=== PATIENT | female | born 1950 | race Caucasian/White ===

== ENCOUNTER → 2016-10-18 | Outpatient (REF) | payer MEDICARE, OTHER ==
[~2016-10-18] MED LIST: AMOX875T2 PO; BENZ200C44 PO
[2016-10-18 12:38] LABS: ALBUMIN 3.6 GM/DL (3.2-5.2); ALKALINE PHOSPHATASE 140 U/L (45-117); ALT/SGPT 24 U/L (12-78); ANION GAP 12 MEQ/L (8-16); AST/SGOT 12 U/L (15-37); BILIRUBIN,TOTAL 0.7 MG/DL (0.2-1.0); BLOOD UREA NITROGEN 13 MG/DL (7-18); CALCIUM LEVEL 8.9 MG/DL (8.8-10.2); CARBON DIOXIDE LEVEL 25 MEQ/L (21-32); CHLORIDE LEVEL 107 MEQ/L (98-107); CREATININE FOR GFR 0.88 MG/DL (0.55-1.02); FREE T4 1.09 NG/DL (0.76-1.46); GLOMERULAR FILTRATION RATE > 60.0 (>45); GLUCOSE, FASTING 98 MG/DL (80-110); POTASSIUM SERUM 4.1 MEQ/L (3.5-5.1); SODIUM LEVEL 144 MEQ/L (136-145); TOTAL PROTEIN 7.2 GM/DL (6.4-8.2)
== END ==
LOC: M SFHCPLAZ 08:59
PROVIDERS: ATTEND Nurse Practitioner Family
DX: E78.5 Hyperlipidemia, unspecified (principal)

== ENCOUNTER → 2017-04-19 | Outpatient (REF) | payer MEDICARE, OTHER ==
[~2017-04-19] MED LIST changes: -BENZ200C44 PO; +BENZ200C53 PO
[2017-04-19 12:21] LABS: ALBUMIN 3.4 GM/DL (3.2-5.2); ALKALINE PHOSPHATASE 110 U/L (45-117); ALT/SGPT 23 U/L (12-78); ANION GAP 7 MEQ/L (8-16); AST/SGOT 10 U/L (15-37); BILIRUBIN,TOTAL 0.6 MG/DL (0.2-1.0); BLOOD UREA NITROGEN 21 MG/DL (7-18); CALCIUM LEVEL 8.8 MG/DL (8.8-10.2); CARBON DIOXIDE LEVEL 27 MEQ/L (21-32); CHLORIDE LEVEL 109 MEQ/L (98-107); CHOLESTEROL LEVEL 170 MG/DL (<200); CREATININE FOR GFR 0.87 MG/DL (0.55-1.02); GLOMERULAR FILTRATION RATE > 60.0 (>45); GLUCOSE, FASTING 96 MG/DL (80-110); POTASSIUM SERUM 4.2 MEQ/L (3.5-5.1); SODIUM LEVEL 143 MEQ/L (136-145); TOTAL PROTEIN 6.5 GM/DL (6.4-8.2); TRIGLYCERIDES LEVEL 112 MG/DL (<150)
== END ==
LOC: M SFHCPLAZ 07:51
PROVIDERS: ATTEND Nurse Practitioner Family
DX: E78.5 Hyperlipidemia, unspecified (principal); E55.9 Vitamin D deficiency, unspecified

== ENCOUNTER → 2017-10-25 | Outpatient (REF) | payer MEDICARE, OTHER ==
[2017-10-25 13:00] LABS: ALBUMIN/GLOBULIN RATIO 1.14 (1.00-1.93); ALKALINE PHOSPHATASE 106 U/L (45-117); ALT/SGPT 48 U/L (12-78); ANION GAP 10 MEQ/L (8-16); AST/SGOT 19 U/L (7-37); BILIRUBIN,TOTAL 0.8 MG/DL (0.2-1.0); BLOOD UREA NITROGEN 19 MG/DL (7-18); CALCIUM LEVEL 9.2 MG/DL (8.8-10.2); CARBON DIOXIDE LEVEL 26 MEQ/L (21-32); CHLORIDE LEVEL 106 MEQ/L (98-107); CREATININE FOR GFR 0.88 MG/DL (0.55-1.02); GLOMERULAR FILTRATION RATE > 60.0 (>45); GLUCOSE, FASTING 98 MG/DL (80-110); POTASSIUM SERUM 4.3 MEQ/L (3.5-5.1); SODIUM LEVEL 142 MEQ/L (136-145); TOTAL PROTEIN 7.5 GM/DL (6.4-8.2)
[2017-10-25 13:03] LABS: TOTAL 25(OH) VITAMIN D 37.9 NG/ML (30.0-100.0)
== END ==
LOC: M SFHCPLAZ 08:38
DX: I10 Essential (primary) hypertension (principal); E55.9 Vitamin D deficiency, unspecified
CPT/HCPCS: 80053

== ENCOUNTER → 2018-04-19 | Outpatient (REF) | payer MEDICARE, OTHER ==
[2018-04-19 10:09] LABS: ALBUMIN 3.3 GM/DL (3.2-5.2); ALBUMIN/GLOBULIN RATIO 0.94 (1.00-1.93); ALKALINE PHOSPHATASE 124 U/L (45-117); ALT/SGPT 22 U/L (12-78); ANION GAP 7 MEQ/L (8-16); AST/SGOT 13 U/L (7-37); BILIRUBIN,TOTAL 0.6 MG/DL (0.2-1.0); BLOOD UREA NITROGEN 13 MG/DL (7-18); CALCIUM LEVEL 8.3 MG/DL (8.8-10.2); CARBON DIOXIDE LEVEL 27 MEQ/L (21-32); CHLORIDE LEVEL 109 MEQ/L (98-107); CHOLESTEROL LEVEL 153 MG/DL (<200); CREATININE FOR GFR 0.82 MG/DL (0.55-1.30); GLOMERULAR FILTRATION RATE > 60.0 (>45); GLUCOSE, FASTING 98 MG/DL (70-100); HDL CHOLESTEROL 51 MG/DL (>40); LDL CHOLESTEROL 82.6 MG/DL (<100); NON-HDL-C 102 MG/DL; POTASSIUM SERUM 3.9 MEQ/L (3.5-5.1); SODIUM LEVEL 143 MEQ/L (136-145); TOTAL PROTEIN 6.8 GM/DL (6.4-8.2); TRIGLYCERIDES LEVEL 97 MG/DL (<150)
[2018-04-19 10:39] LABS: MALB URINE SIEMENS 7.2 MG/L; MAU/CREAT RATIO 3.5 MCG/MG (0.0-30.0)
== END ==
LOC: M SFHCPLAZ 07:50
DX: I10 Essential (primary) hypertension (principal); E78.5 Hyperlipidemia, unspecified
CPT/HCPCS: 80053

== ENCOUNTER → 2018-10-21 | Outpatient (REF) | payer MEDICARE, OTHER ==
[~2018-10-21] MED LIST changes: -BENZ200C53 PO; +BENZ200C70 PO
[2018-10-21 12:04] LABS: ALBUMIN 3.8 GM/DL (3.2-5.2); ALT/SGPT 43 U/L (12-78); BILIRUBIN,TOTAL 0.7 MG/DL (0.2-1.0); BLOOD UREA NITROGEN 12 MG/DL (7-18); CARBON DIOXIDE LEVEL 25 MEQ/L (21-32); CHLORIDE LEVEL 107 MEQ/L (98-107); CREATININE FOR GFR 0.93 MG/DL (0.55-1.30); GLOMERULAR FILTRATION RATE > 60.0 (>45); GLUCOSE, FASTING 99 MG/DL (70-100); POTASSIUM SERUM 4.4 MEQ/L (3.5-5.1); SODIUM LEVEL 140 MEQ/L (136-145); TOTAL PROTEIN 7.1 GM/DL (6.4-8.2)
== END ==
LOC: M SFHCPLAZ 07:48
PROVIDERS: ATTEND Nurse Practitioner Family
DX: I10 Essential (primary) hypertension (principal); E78.5 Hyperlipidemia, unspecified; E55.9 Vitamin D deficiency, unspecified

== ENCOUNTER → 2019-05-26 | Outpatient (REF) | payer MEDICARE, OTHER ==
[2019-05-26 10:29] LABS: CREATININE, URINE 72.7 MG/DL; MALB URINE SIEMENS 8.6 MG/L; MAU/CREAT RATIO 11.8 MCG/MG (0.0-30.0)
[2019-05-26 10:33] LABS: ALBUMIN 3.5 GM/DL (3.2-5.2); ALT/SGPT 20 U/L (12-78); BILIRUBIN,TOTAL 0.6 MG/DL (0.2-1.0); BLOOD UREA NITROGEN 16 MG/DL (7-18); CALCIUM LEVEL 8.8 MG/DL (8.8-10.2); CARBON DIOXIDE LEVEL 28 MEQ/L (21-32); CHLORIDE LEVEL 108 MEQ/L (98-107); CHOLESTEROL LEVEL 172 MG/DL (<200); CHOLESTEROL RISK RATIO 2.177 (<5); CREATININE FOR GFR 0.77 MG/DL (0.55-1.30); GLOMERULAR FILTRATION RATE > 60.0 (>45); GLUCOSE, FASTING 84 MG/DL (70-100); HDL CHOLESTEROL 79 MG/DL (>40); LDL CHOLESTEROL 81 MG/DL (<100); NON-HDL-C 93 MG/DL; POTASSIUM SERUM 4.2 MEQ/L (3.5-5.1); SODIUM LEVEL 143 MEQ/L (136-145); TRIGLYCERIDES LEVEL 60 MG/DL (<150)
== END ==
LOC: M SFHCPLAZ 08:12
PROVIDERS: ATTEND Nurse Practitioner Family
DX: E78.5 Hyperlipidemia, unspecified (principal); I10 Essential (primary) hypertension; Z11.59 Encounter for screening for other viral diseases
CPT/HCPCS: 36415; 80053; 80061; 82043; 84439; 84443; G0472

== ENCOUNTER → 2020-03-28 | Outpatient (CLI) | payer MEDICARE, OTHER ==
[~2020-03-28] MED LIST changes: +ATOR1TAB21 PO; +LOSA25TA14 PO
== END ==
LOC: M LABSMTC 11:02
PROVIDERS: ATTEND Anesthesiology
DX: Z03.818 Encounter for observation for suspected exposure to other biological agents ruled out (principal); Z11.59 Encounter for screening for other viral diseases
CPT/HCPCS: C9803; U0003

== ENCOUNTER 2020-03-31 08:49 | Day surgery (SDC) | payer MEDICARE, BC, OTHER ==
[~2020-03-31] VITALS: Ht 162.6 cm; Wt 87.1 kg
[~2020-03-31 08:49] MED LIST changes: +NS 1,000 ML IV ONE
[2020-03-31] MEDS ORDERED: propofoL 500 MG/50 ML VIAL As Ordered ONE (10:28)
[2020-03-31] MEDS ORDERED: LIDOCAINE 2% 100MG/5ML SDV (FOR ANES.) As Ordered ONE (10:28)
--- NOTE | 2020-03-31 10:57 | ROOR ---
Patient Name: Tanya Casper Procedure Date: 03/31/2020 10:26 AM Date of : 1950 Age: 70 Room: [facility] Gender: Female Note Status: Finalized Procedure: Total Colonoscopy to Cecum + Biopsy Polypectomy Indications: High risk colon cancer surveillance: Personal history of colonic polyps, Last colonoscopy: 2015 Providers: Arsen Skinner MD Referring MD: Alex Gaona MD Requesting Provider: Medicines: Monitored Anesthesia Care Complications: No immediate complications. Procedure: Pre-Anesthesia Assessment: - The heart rate, respiratory rate, oxygen saturations, blood pressure, adequacy of pulmonary ventilation, and response to care were monitored throughout the procedure. The Colonoscope was introduced through the anus and advanced to the cecum, identified by appendiceal orifice and ileocecal valve. The colonoscopy was performed without difficulty. The patient tolerated the procedure well. The quality of the bowel preparation was excellent. Findings: The perianal and digital rectal examinations were normal. Non-bleeding internal hemorrhoids were found during retroflexion. The hemorrhoids were small and Grade I (internal hemorrhoids that do not prolapse). A diminutive polyp was found at 10 cm proximal to the anus. The polyp was sessile. The polyp was removed with a cold biopsy forceps. Resection and retrieval were complete. Multiple small and large-mouthed diverticula were found in the recto-sigmoid colon, sigmoid colon and descending colon. The exam was otherwise without abnormality on direct and retroflexion views. Impression: - Non-bleeding internal hemorrhoids. - One diminutive polyp at 10 cm proximal to the anus, removed with a cold biopsy forceps. Resected and retrieved. - Diverticulosis in the recto-sigmoid colon, in the sigmoid colon and in the descending colon. - The examination was otherwise normal on direct and retroflexion views. - The exam was otherwise normal to the cecum. Recommendation: - Patient has a contact number available for emergencies. The signs and symptoms of potential delayed complications were discussed with the patient. Return to normal activities tomorrow. Written discharge instructions were provided to the patient. - High fiber diet. - Discharge patient to home. - Continue present medications. - Await pathology results. - Telephone GI clinic for pathology results in 1 week. - Repeat colonoscopy in 5 years for surveillance. - Return to referring physician. - The findings and recommendations were discussed with the patient's family. Arsen Skinner MD Arsen Skinner MD 03/31/2020 10:57:15 AM Electronically signed by Arsen Skinner MD Number of Addenda: 0 Note Initiated On: 03/31/2020 10:26 AM Estimated Blood Loss: Estimated blood loss: none.
[2020-03-31 11:15] VITALS: BP 130/91
== END 2020-03-31 11:23 | disposition home or self-care (01) ==
LOC: M OPP 08:49
PROVIDERS: ATTEND Internal Medicine Gastroenterology
DX: Z12.11 Encounter for screening for malignant neoplasm of colon (principal); Z86.010 Personal history of colon polyps; K64.0 First degree hemorrhoids; D12.6 Benign neoplasm of colon, unspecified; K57.30 Diverticulosis of large intestine without perforation or abscess without bleeding; I10 Essential (primary) hypertension; Z79.899 Other long term (current) drug therapy

== ENCOUNTER → 2020-05-20 | Outpatient (REF) | payer MEDICARE, BC, OTHER ==
[~2020-05-20] MED LIST changes: -NS 1,000 ML IV ONE
[2020-07-04 11:42] LABS: ALBUMIN 3.6 GM/DL (3.2-5.2); ALT/SGPT 20 U/L (12-78); BILIRUBIN,TOTAL 0.6 MG/DL (0.2-1.0); BLOOD UREA NITROGEN 13 MG/DL (7-18); CARBON DIOXIDE LEVEL 28 MEQ/L (21-32); CHLORIDE LEVEL 109 MEQ/L (98-107); CHOLESTEROL LEVEL 171 MG/DL (<200); CHOLESTEROL RISK RATIO 2.552 (<5); CREATININE FOR GFR 0.88 MG/DL (0.55-1.30); FREE T4 1.01 NG/DL (0.76-1.46); GLOMERULAR FILTRATION RATE > 60.0 (>45); GLUCOSE, FASTING 101 MG/DL (70-100); HDL CHOLESTEROL 67 MG/DL (>40); HEMOGLOBIN A1c 5.1 %; LDL CHOLESTEROL 89 MG/DL (<100); NON-HDL-C 104 MG/DL; POTASSIUM SERUM 4.4 MEQ/L (3.5-5.1); SODIUM LEVEL 142 MEQ/L (136-145); TOTAL PROTEIN 7.1 GM/DL (6.4-8.2); TRIGLYCERIDES LEVEL 73 MG/DL (<150)
== END ==
LOC: M SFHCPLAZ 14:50
PROVIDERS: ATTEND Physician Assistant
DX: E78.2 Mixed hyperlipidemia (principal); I11.9 Hypertensive heart disease without heart failure; Z13.1 Encounter for screening for diabetes mellitus

== ENCOUNTER → 2020-11-22 | Outpatient (REF) | payer MEDICARE, OTHER ==
[2020-11-22 12:48] LABS: BLOOD UREA NITROGEN 15 MG/DL (7-18); CALCIUM LEVEL 8.9 MG/DL (8.8-10.2); CARBON DIOXIDE LEVEL 29 MEQ/L (21-32); CHLORIDE LEVEL 108 MEQ/L (98-107); CREATININE FOR GFR 0.85 MG/DL (0.55-1.30); GLOMERULAR FILTRATION RATE > 60.0 (>45); GLUCOSE, FASTING 96 MG/DL (70-100); POTASSIUM SERUM 4.1 MEQ/L (3.5-5.1); SODIUM LEVEL 142 MEQ/L (136-145)
[2020-11-22 12:49] LABS: ALBUMIN 3.6 GM/DL (3.2-5.2); ALT/SGPT 23 U/L (12-78); BILIRUBIN,TOTAL 0.8 MG/DL (0.2-1.0); CHOLESTEROL LEVEL 133 MG/DL (<200); CHOLESTEROL RISK RATIO 2.418 (<5); FREE T4 1.06 NG/DL (0.76-1.46); HDL CHOLESTEROL 55 MG/DL (>40); LDL CHOLESTEROL 63 MG/DL (<100); NON-HDL-C 78 MG/DL; TRIGLYCERIDES LEVEL 75 MG/DL (<150)
== END ==
LOC: M PLALAB 08:17
PROVIDERS: ATTEND Physician Assistant
DX: Z00.00 Encounter for general adult medical examination without abnormal findings (principal); E78.5 Hyperlipidemia, unspecified; E55.9 Vitamin D deficiency, unspecified; I10 Essential (primary) hypertension

== ENCOUNTER → 2021-06-17 | Outpatient (CLI) | payer MEDICARE, OTHER ==
--- NOTE | 2021-06-17 12:01 | REP ---
INDICATION: LT KNEE PAIN. COMPARISON: None. TECHNIQUE: AP and lateral bilateral knees. FINDINGS: There is no acute fracture or dislocation. On the left as well as on the right there is moderate lateral joint space narrowing with subchondral sclerosis. There is moderate spurring at the margins of the left knee joint especially laterally, with a more mild degree of marginal spurring on the right. There is moderate superior patellar spurring bilaterally. There is a mild to moderate suprapatellar effusion on the left, without a significant effusion identified on the right. IMPRESSION: Moderate degenerative changes as discussed above somewhat greater on the left than on the right. There is a mild to moderate suprapatellar effusion on the left. <Electronically signed by Aníbal Carpio > 06/17/21 1482
== END ==
LOC: M SOG 10:09
PROVIDERS: ATTEND Orthopaedic Surgery Adult Reconstructive Orthopaedic Surgery
DX: M25.762 Osteophyte, left knee (principal); M25.761 Osteophyte, right knee

== ENCOUNTER → 2021-08-08 | Outpatient (CLI) | payer MEDICARE, BC, OTHER ==
[~2021-08-08] MED LIST changes: +VITATAB74 PO
--- NOTE | 2021-08-08 09:36 | REP ---
INDICATION: YESSENIA PRIMARY OSTEOARTHRITIS OF KNEE. COMPARISON: None. TECHNIQUE: 3 x 3 mm helical scanning through the left hip, left knee, and left ankle. [facility] protocol. FINDINGS: At the hip: There is rather symmetric appearing mild hip joint space narrowing. There is no evidence of subchondral sclerosis or subchondral cyst formation. There does appear to be mild buttressing. There is no acute fracture, dislocation, or subluxation. At the knee: There is tricompartmental marginal osteophytosis particularly affecting the lateral compartment where there is advanced asymmetric compartment in air owing, subchondral sclerosis, and tiny subchondral cysts involving the lateral tibial plateau. There is more moderate medial compartmental narrowing without pablo subchondral cyst formation or subchondral sclerosis. Advanced asymmetric patellofemoral joint space narrowing is identified without evidence of subchondral cyst formation. There is no acute fracture, dislocation, or subluxation. At the ankle: The mortise is intact. There is no prominent marginal osteophytosis. There is no evidence of subchondral cyst formation involving the talar dome or tibial plafond. There is evidence of a heel valgus deformity. The lateral talar process is sharp. The subtalar joints are within normal limits. There is no acute fracture, dislocation, or subluxation. Degenerative changes are seen involving the imaged portion of the midfoot. IMPRESSION: Advanced chronic changes involving the knee as described above. <Electronically signed by Patrice Sidhu > 08/08/21 0428
== END ==
LOC: M RAD 08:17
PROVIDERS: ATTEND Orthopaedic Surgery Adult Reconstructive Orthopaedic Surgery
DX: M17.0 Bilateral primary osteoarthritis of knee (principal)

== ENCOUNTER 2021-08-11 09:20 | Outpatient (RCR) | payer MEDICARE, BC, OTHER | END 2021-08-14 | LOC: M PT 09:20 | PROVIDERS: ATTEND Orthopaedic Surgery Adult Reconstructive Orthopaedic Surgery | DX: M17.0 Bilateral primary osteoarthritis of knee (principal) ==

== ENCOUNTER → 2021-08-12 | Outpatient (CLI) | payer MEDICARE, BC, OTHER ==
--- NOTE | 2021-08-12 16:28 | REPMRS ---
Patient History The patient states she has not had a clinical breast exam in over a year. Patient is postmenopausal. Family history of breast cancer at age 50 in sister. Benign radio exam breast specimen of the left breast, August 02, 2016. Benign stereotatic loc for ea lesion of the left breast, August 02, 2016. Patient states no breast complaints today. Patient has signed MRS History Sheet. Digital Woman Screen Mammo: August 12, 2021 - Exam #: [id number] Bilateral CC and MLO view(s) were taken. Technologist: Brigitte River, Technologist Prior study comparison: July 29, 2020, bilateral digital mammo screening bilat, performed at [facility]. July 26, 2019, bilateral digital mammo screening bilat, performed at [facility]. FINDINGS: The breast tissue is almost entirely fat. Screening. Digital screening (2D) mammography was performed bilaterally in the CC and MLO projections. Additionally, breast tomosynthesis (3D mammography) was performed bilaterally in the CC and MLO projections. Todays exam was compared to the prior exam/exams. By history, the patient has no complaints of a palpable breast abnormality or other significant breast complaints. The Volpara volumetric breast density category is A, the breasts are almost entirely fatty. There are two stable biopsy clips in the left breast. The breasts are unchanged in size and shape. There are no rei-soft tissue densities or spiculated masses. There is no internal architectural distortion. There are no suspicious rei-calcific clusters. Skin thickening or nipple retraction is not present. IMPRESSION: BI-RADS Category 2- Benign Findings. There is no evidence of malignant alteration of the breasts. Followup examination recommended in one year. The lifetime Tyrer-Cuzick score is 10.4% This mammogram was read with the assistance of [employer],an FDA approved computer aided detection system for mammography. Negative x-ray reports should not delay surgical consultation if a dominant or clinically suspicious mass is present. Not all breast cancers can be identified by mammography. Therefore, we recommend that you continue to perform regular breast self-examination and physical examination and then promptly contact your physician of any concerns or changes. Adenosis and dense breasts may obscure an underlying neoplasm. No significant changes when compared with prior studies. Assessment: BI-RADS/ACR category 2 mammogram. Benign Findings. Recommendation Routine screening mammogram of both breasts in 1 year. Electronically Signed By: Jefferson Hinkle MD 08/12/21 0190
== END ==
LOC: M WHC 12:34
PROVIDERS: ATTEND Physician Assistant
DX: Z12.31 Encounter for screening mammogram for malignant neoplasm of breast (principal); Z78.0 Asymptomatic menopausal state; Z80.3 Family history of malignant neoplasm of breast

== ENCOUNTER → 2021-08-17 | Outpatient (CLI) | payer MEDICARE, BC, OTHER ==
[~2021-08-17] MED LIST changes: +ASCO50TA PO; +ASPI-551 PO; +COLA100C5 PO; +FERR1TAB8 PO; +NAPR-849 PO; +OXYC-517 PO
== END ==
LOC: M LABSMTC 09:56
PROVIDERS: ATTEND Anesthesiology
DX: Z01.812 Encounter for preprocedural laboratory examination (principal); I10 Essential (primary) hypertension; Z20.822 Contact with and (suspected) exposure to COVID-19
CPT/HCPCS: 80053; 85027; G0463; U0003

== ENCOUNTER → 2021-08-17 | Outpatient (REF) | payer MEDICARE, OTHER ==
[2021-08-17 13:21] LABS: HEMATOCRIT 42.7 % (36.0-47.0); MEAN CORPUSCULAR HEMOGLOBIN 30.9 pg (27.0-33.0); MEAN CORPUSCULAR HGB CONC 32.8 g/dl (32.0-36.5); MEAN CORPUSCULAR VOLUME 94.3 fl (80.0-96.0); PLATELET COUNT, AUTOMATED 262 10^3/uL (150-450); RED BLOOD COUNT 4.53 10^6/uL (4.00-5.40); WHITE BLOOD COUNT 7.4 10^3/uL (4.0-10.0)
[2021-08-17 14:00] LABS: ALBUMIN 3.6 GM/DL (3.2-5.2); ALT/SGPT 24 U/L (12-78); BILIRUBIN,TOTAL 0.6 MG/DL (0.2-1.0); BLOOD UREA NITROGEN 16 MG/DL (7-18); CALCIUM LEVEL 9.2 MG/DL (8.8-10.2); CARBON DIOXIDE LEVEL 27 MEQ/L (21-32); CHLORIDE LEVEL 107 MEQ/L (98-107); CREATININE FOR GFR 0.88 MG/DL (0.55-1.30); GLOMERULAR FILTRATION RATE > 60.0 (>39); GLUCOSE, FASTING 85 MG/DL (70-100); POTASSIUM SERUM 4.1 MEQ/L (3.5-5.1); SODIUM LEVEL 139 MEQ/L (136-145); TOTAL PROTEIN 7.3 GM/DL (6.4-8.2)
== END ==
LOC: M SFHCADAM 10:36
PROVIDERS: ATTEND Family Medicine
DX: Z01.818 Encounter for other preprocedural examination (principal); I10 Essential (primary) hypertension

== ENCOUNTER 2021-08-22 06:21 | Observation (INO) | payer MEDICARE, BC, OTHER ==
[~2021-08-22] VITALS: Ht 162.6 cm; Wt 90.3 kg
[2021-08-22] VITALS (7 sets, daily range): BP systolic 135–144; BP diastolic 81–86
[~2021-08-22 06:21] MED LIST changes: +ACETAMINOPHEN 500 MG TAB PO ONE; -ASCO50TA PO; -ASPI-551 PO; -COLA100C5 PO; -FERR1TAB8 PO; +LIDOCAINE 1% MDV 20ML VIAL SQ PRN; +LR 1,000 ML IV ONE; -NAPR-849 PO; +NAPROXEN 250 MG TAB PO ONE; +NS 1,000 ML IV ONE; -OXYC-517 PO; +PREGABALIN 25 MG CAP (LYRICA) PO ONE; +TRANEXAMIC ACID INJection 1,000 MG in NS 50 ML IV ONE; +ceFAZolin SOD 2 GM in IV 1 EA IV ONE; +dexameTHASONE 4 MG/ML 1ML VIAL (J1100 PER 1MG) IV ONE
--- OUTSIDE RECORDS SUMMARY | 2021-08-22 06:25 | CCD ---
Author Author [facility] Organization [facility] Address Unknown Phone Unavailable Care Team Providers Care Flatwork Finisher Name Role Phone Alex Gaona Unavailable PROBLEMS ALLERGIES No Known Allergies ENCOUNTERS from 1950 to 2021-08-19 IMMUNIZATIONS SOCIAL HISTORY REASON FOR REFERRAL No Information VITAL SIGNS MEDICATIONS PROCEDURES No Information RESULTS No Results REASON FOR VISIT MEDICAL (GENERAL) HISTORY Goals Section Health Concerns MEDICAL EQUIPMENT No Information MENTAL STATUS FUNCTIONAL STATUS ASSESSMENTS No Information PLAN OF TREATMENT Insurance Providers
--- OUTSIDE RECORDS SUMMARY | 2021-08-22 06:25 | CCD ---
Author Author [facility] Organization [facility] [employer] [facility] Address Unknown Phone Unavailable Care Team Providers Care Insurance Service Representative Name Role Phone Vane Miller Unavailable PROBLEMS Type Condition ICD9-CM Code XIG46-ST Code Onset Dates Condition S tatus W/U Status Risk SNOMED Code Notes Problem Encounter for other screening for malignant neoplasm o f breast Z12.39 Active confirmed 106508475 Problem Primary osteoarthritis of left knee M17.12 Acti ve confirmed 710649425185813 Problem Hyperlipidemia, unspecified E78.5 Active confirmed 36232581 Problem Abnormal mammogram R92.8 Active confirmed 1 85422001 Problem Essential (primary) hypertension I10 Active conf irmed 93467028 Problem Vitamin D deficiency E55.9 Active confirmed 18972764 ALLERGIES No Known Allergies ENCOUNTERS from 1950 to 2021-06-03 Encounter Location Date Provider Diagnosis [address] [phone] [place] [address] May, Vane Miller Hyperlipidemia, unspecified E78.5 IMMUNIZATIONS Vaccine Route Administration Date Status Influenza (High Dose 65 & up) IM Intramuscular Jul 21, 2016 A dministered Zoster 0.65mL Zostavax SC Subcutaneous Jul 24, 2012 Administe red Pneumococcal Adult 0.5mL Pneumovax 23 IM Intramuscular Aug 02 017 Administered TDAP 0.5mL (Boostrix) IM Intramuscular Dec 02, 2013 Administe red Pneumococcal 0.5mL Prevnar 13 IM Intramuscular Jul 21, 2016 A dministered Influenza 6mo & up Fluzone IM Intramuscular Aug 27, 2015 Admi nistered COVID-19 dose #1 given elsewhere Unspecified Unknown Nov 09, 2020 Administered Influenza 6mo & up Fluzone IM Intramuscular Jul 29, 2014 Admi nistered COVID-19 dose #2 given elsewhere Unspecified Unknown Nov 30, 2020 Administered Influenza 6mo & up Fluzone IM Intramuscular Jul 23, 2013 Admi nistered Influenza (High Dose 65 & up) IM Intramuscular Aug 02, 2017 A dministered Influenza 6mo & up Fluzone IM Intramuscular Jul 24, 2012 Admi nistered SOCIAL HISTORY Tobacco Use: Social History Observation Description Date Details (start date - stop date) Never Smoker Sex Assigned At : Social History Observation Description Sex Assigned At Unknown Education: Question Answer Notes Level of Education: Finished High School some college Audit Question Answer Notes Total Score: 4 Interpretation: Alcohol Education Faith: Question Answer Notes Faith 03 [employer] Sexual Hx: Question Answer Notes Had sex in the last 12 months (vaginal, oral, or anal)? Yes LMP: years ago Have you ever had an STD? No Prevention Strategies discussed: Other with Men only Use protection? No Drug and Alcohol Question Answer Notes Total Score: 0 Interpretation: No problems reported Alcohol Screening: Question Answer Notes Did you have a drink containing alcohol in the past year? Ye s Points 4 Interpretation Positive How often did you have six or more drinks on one occas ion in the past year? Never (0 points) How many drinks did you have on a typica l day when you were drinking in the past year? 1 or 2 (0 points) How often did you have a drink containing alcohol in t he past year? Four or more times a week (4 points) BMI Care Goal Follow-Up Question Answer Notes Above Normal BMI Follow-Up Dietary management educatio n, guidance, and counseling Tobacco Use: Question Answer Notes Are you a: never smoker never smoker REASON FOR REFERRAL No Information VITAL SIGNS No information MEDICATIONS Medication SIG (Take, Route, Frequency, Duration) Notes Start Da te End Date Status Cozaar 25 MG 1 tablet Orally Once a day for 90 Active Vitamin D3 Active Multivitamin - 1 tab Orally Daily No t-Taking Atorvastatin Calcium 20 MG 1 tablet Orally Once a day for 90 day(s) Active Apple Cider Vinegar Activ e Losartan Potassium 25 MG TAKE 1 TABLET BY MOUTH ONCE DAILY for 90 Active Advil 200 MG 1 tablet Orally daily as needed Active Vitamin D 1000 UNIT 1 tablet Orally Once a day Not-Taking PROCEDURES No Information RESULTS No Results REASON FOR VISIT refill MEDICAL (GENERAL) HISTORY Type Description Date Medical History obesity Medical History Left knee osteoarthritis, NCOG Medical History hyperlipidemia Medical History HTN-- meds d/c 11/29 Medical History benign breast masses bilaterally Medical History 02/21 colonoscopy with Gia goins, Non-bleeding int hemorrhoids, diverticulosis, repeat 5 -10 y done 10/2015 Medical History DEXA Scan, osteopenia, no os teoporosis, FRAX: 10 year risk of hip fracture < 1% and 10 year risk of major fracture 9%; repeat 2018 Medical History Colonoscopy 2015-repeat 5yea rs; 2019- tubular adenoma, repeat in 5 years Surgical History tubal ligation Surgical History TVH with BSO 2003 Surgical History Curtis ankle surgery by Dr Gillis 07 & 0 8 Surgical History Curtis breast bx, multiple Surgical History colonoscopy- 2009-nl, 2015- polyps; 2019 - polyps Surgical History Cholecystectomy 10/2011 Dr. Day 2011 Hospitalization History vaginal delivery, c section 1974, 19 76 Hospitalization History hysterectomy 2003 Goals Section No Information Health Concerns No Information MEDICAL EQUIPMENT No Information MENTAL STATUS No Information FUNCTIONAL STATUS No Information ASSESSMENTS Encounter Date Diagnosis Assessment Notes Treatment Notes Treatm ent Clinical Notes May, Hyperlipidemia, unspecified (ICD-10 - E78.5) PLAN OF TREATMENT Medication Medication Name Sig Start Date Stop Date Atorvastatin Calcium 20 MG 1 tablet Orally Once a day for 90 day (s) Next Appt Details Provider Name:Alex Gaona, 2021-11 01:15:00 PM, [address], , [place], [address], Insurance Providers Payer Name Payer Address Payer Phone Insured Name Patient Relati onship to Insured Coverage Start Date Coverage End Date MEDICARE Part A and B [address] [facility] [phone] DADA DÍAZ [facility] [address] [facility] [id number] DADA DÍAZ [id number]
--- OUTSIDE RECORDS SUMMARY | 2021-08-22 06:25 | CCD | Continuity of Care Document ---
Author Author Tanya ARZOLA MD Organization Unknown Address [address] , [facility] [place] [address] Phone [phone] Care Team Providers Care Reproducer Name Role Phone Vane Miller P.A.-C AUTM [phone] AUTM Unavailable Alex Gaona M.D. AUTM [phone] Problems Active Problems Provider Date Essential hypertension Onset: 06/29/2016 Social History Type Date Description Comments Sex Unknown ETOH Use 5-7 Drinks Per Week Tobacco Use Start: Unknown Patient has never smoked Recreational Drug Use Denies Drug Use Smoking Status Reviewed: 06/17/21 Patient has never smoked Allergies, Adverse Reactions, Alerts Description No Known Drug Allergies Medications Active Medications SIG Qnty Indications Ordering Provide r Date Losartan Potassium 25mg Tablets p.o once a day Unknown Multivitamin Adult Tablets every day once a day Unknown Advil 200mg Tablets as Needed Unknown Atorvastatin Calcium 20mg Tablets 1 by mouth every day Unknown Immunizations Description No Information Available Vital Signs Date Vital Result Comment 06/17/2021 10:16am Height 64 inches 5'4" Weight 195.00 lb BMI (Body Mass Index) 33.5 kg/m2 [place] Body Weight 120 lb Weight 88.452 kg BSA (Body Surface Area) 1.94 m2 08/08/2016 11:32am BP Systolic 168 mmHg BP Diastolic 100 mmHg Height 64 inches 5'4" Weight 208.38 lb BMI (Body Mass Index) 35.8 kg/m2 [place] Body Weight 120 lb Weight 94.519 kg BSA (Body Surface Area) 1.99 m2 Results Description No Information Available Procedures Date Code Description Status 06/17/2021 71063 Office/Outpatient New Moderate M DM 45-59 Minutes Completed Medical Devices Description No Information Available Encounters Type Date Location Provider Dx Diagnosis Office Visit 06/17/2021 10:30a [facility] Carroll Arzola MD M17.0 Bilateral primary osteoarthritis of knee Assessments Date Code Description Provider 06/17/2021 M17.0 Bilateral osteoarthritis of knee s Carroll Arzola MD Plan of Treatment Future Appointment(s):* 09/30/2021 8:00 am - Carroll Arzola MD at [facility] 06/17/2021 - Carroll Arzola MD* M17.0 Bilateral osteoarthritis of knees* Comments:* The patient demonstrates left greater than right knee pain associated with osteoarthritic change. This is primarily in the lateral compartments and the patient demonstrates bilateral knee genu valgum. I had a thorough discussion with the patient with regards to options. We have discussed continued conservative treatment with cortisone or gel injections and therapy in terms of physical therapy or bracing. We have also discussed a total knee arthroplasty.I did explain to the patient that a total joint replacement procedure is an elective procedure. Candidacy for the procedure is based on imaging and the patient's symptoms and whether or not the patient would like to proceed with the surgery. The procedure is performed for pain relief only. Any other gains are secondary. The risks of the procedure include but are not limited to infection, periprosthetic fracture, damage to local neurovascular or soft tissue structures, deep vein thrombosis or pulmonary emboli, and need for revision surgery. Anesthetic risks will be discussed with the anesthesiologist. These include but are not limited to, heart attack, stroke and .At this point, the patient would like to think about it and contact the office as to how she would like to proceed. We have booked a follow-up appointment for 3 months time in the interim. If she is decided that she would like to try injections or have surgery with regards to the knee replacement she can certainly contact the office to be seen sooner.Patient was provided with the total joint arthroplasty literature and a [facility] pamphlet * Follow up:* 3 months Functional Status Description No Information Available Mental Status Description No Information Available Referrals Description No Information Available
--- OUTSIDE RECORDS SUMMARY | 2021-08-22 06:25 | CCD ---
Continuity of Care Document (CCD) Created on: 07/11/2021 Tanya Casper External Reference #: [id number] : [id number] Sex: Female Author Author Tanya ARZOLA MD Organization Unknown Address [address] , [facility] [place] [address] Phone [phone] Care Team Providers Care Skid Worker Name Role Phone Vane Miller P.A.-C AUTM [phone] AUTM Unavailable Alex Gaona M.D. AUTM [phone] Problems Active Problems Provider Date Essential hypertension Onset: 06/29/2016 Social History Type Date Description Comments Sex Unknown ETOH Use 5-7 Drinks Per Week Tobacco Use Start: Unknown Patient has never smoked Recreational Drug Use Denies Drug Use Smoking Status Reviewed: 07/11/21 Patient has never smoked Allergies, Adverse Reactions, Alerts Description No Known Drug Allergies Medications Active Medications SIG Qnty Indications Ordering Provide r Date Losartan Potassium 25mg Tablets p.o once a day Unknown Advil 200mg Tablets as Needed Unknown Atorvastatin Calcium 20mg Tablets 1 by mouth every day Unknown Vitamin D3 50mcg (2000 Ut) Capsule s every day Unknown Immunizations Description No Information Available Vital Signs Date Vital Result Comment 06/17/2021 10:16am Height 64 inches 5'4" Weight 195.00 lb BMI (Body Mass Index) 33.5 kg/m2 [place] Body Weight 120 lb Weight 88.452 kg BSA (Body Surface Area) 1.94 m2 08/08/2016 11:32am BP Systolic 168 mmHg BP Diastolic 100 mmHg Height 64 inches 5'4" Weight 208.38 lb BMI (Body Mass Index) 35.8 kg/m2 [place] Body Weight 120 lb Weight 94.519 kg BSA (Body Surface Area) 1.99 m2 Results Description No Information Available Procedures Date Code Description Status 06/17/2021 34605 Office/Outpatient New Moderate M DM 45-59 Minutes Completed Medical Devices Description No Information Available Encounters Type Date Location Provider Dx Diagnosis Office Visit 06/17/2021 10:30a [facility] Carroll Arzola MD M17.0 Bilateral primary osteoarthritis of knee Assessments Date Code Description Provider 06/17/2021 M17.0 Bilateral osteoarthritis of knee s Carroll Arzola MD Plan of Treatment Future Appointment(s):* 09/30/2021 8:00 am - Carroll Arzola MD at [facility] 06/17/2021 - Carroll Arzola MD* M17.0 Bilateral [...]
--- OUTSIDE RECORDS SUMMARY | 2021-08-22 06:25 | CCD ---
Author Author [facility] Organization [facility] [employer] [employer] Address Unknown Phone Unavailable Care Team Providers Care Satellite Dish Repairer Name Role Phone Vane Miller Unavailable PROBLEMS Type Condition ICD9-CM Code FIL03-TN Code Onset Dates Condition S tatus W/U Status Risk SNOMED Code Notes Problem Encounter for other screening for malignant neoplasm o f breast Z12.39 Active confirmed 520644003 Problem Primary osteoarthritis of left knee M17.12 Acti ve confirmed [id number] Problem Hyperlipidemia, unspecified E78.5 Active confirmed 22476135 Problem Abnormal mammogram R92.8 Active confirmed 1 71608895 Problem Essential (primary) hypertension I10 Active conf irmed [id number] Problem Vitamin D deficiency E55.9 Active confirmed [id number] ALLERGIES No Known Allergies ENCOUNTERS from 1950 to 2021-06-27 Encounter Location Date Provider Diagnosis [address] [phone] [place] [address] 16 May, 2021 Vane Miller Hyperlipidemia, unspecified E78.5 ; Essential (primary) hypertension I10 ; Primary osteoarthritis of left knee M17.12 ; Vitamin D deficiency E55.9 and Encounter for other screening for malignant neoplasm of breast Z12.39 IMMUNIZATIONS Vaccine Route Administration Date Status Influenza [...] IM Intramuscular Aug 27, 2015 Admi nistered Influenza (High Dose 65 & up) IM Intramuscular Aug 02, 2017 A dministered Influenza 6mo & up Fluzone IM Intramuscular Jul 29, 2014 Admi nistered COVID-19 dose #1 given elsewhere Unspecified Unknown Nov 09, 2020 Administered Influenza 6mo & up Fluzone IM Intramuscular Jul 23, 2013 Admi nistered COVID-19 dose #2 given elsewhere [...] Notes Total Score: 4 Interpretation: Alcohol Education Rastafarian: Question Answer Notes Rastafarian 03 Religious Sexual Hx: Question Answer Notes Had sex [...] never smoker never smoker REASON FOR REFERRAL from 1950 to 2021-06-27 Reason 71y/o female with history of left knee osteoarthritis, she has been getting hyaluronic acid injections for years and would like to discuss alternative treatment options Diagnosis 1 Primary osteoarthritis of le ft knee (M17.12) Referral Organization [facility] [place] Referring Provider First Name Vane Referring Provider Last Name Paul Referring Provider Specialty Family Medicine Referred Provider Carroll Bridges Referred Provider Specialty Orthopedic Surgery Referral Priority Routine Referral Appointment Date 2021-06-17 General Notes Meenakshi Martínez 05/30/2021 9:53:14 AM > referral faxMeenakshi Rodrigues 06/07/2021 4:01:05 PM > Called to check on the status of the referral, patient is scheduled for 06/17/2021 at 10:30 am with VITAL SIGNS Weight 195 lbs May, Weight-kg 88.45 kg May, Height 64 in May, BMI 33.47 kg/m2 May, Heart Rate 102 /min May, Respiratory Rate 18 /min May, Temperature 97.4 degrees Fahrenheit May, Oximetry 100 May, Blood pressure systolic 138 mm Hg May, Blood pressure diastolic 80 mm Hg May, MEDICATIONS Medication SIG (Take, Route, Frequency, Duration) Notes Start Da te End Date Status Cozaar 25 MG 1 tablet Orally Once a day for Active Vitamin D3 Active Multivitamin - 1 [...] Information RESULTS No Results REASON FOR VISIT 6 MONTH MEDICAL (GENERAL) HISTORY Type Description Date Medical [...] breast bx, multiple Surgical History colonoscopy- 2009-nl, 2016- polyps; 2019 - polyps Surgical History Cholecystectomy 10/2011 Dr. Day 2011 Hospitalization History vaginal delivery, c section 1974, 19 77 Hospitalization History hysterectomy 2004 Goals Section No Information Health Concerns No Information MEDICAL EQUIPMENT No Information MENTAL STATUS No Information FUNCTIONAL STATUS No Information ASSESSMENTS Encounter Date Diagnosis Assessment Notes Treatment Notes Treatm ent Clinical Notes May, Hyperlipidemia, unspecified (ICD-10 - E78.5) based upon updated AHA/ACC cholesterol guidelines 2013, pt's LDL is reduced by current statin tx by sufficient percentage based on 10 year ASCVD risk stratification; no adjustments in statin tx needed May, Essential (primary) hypertension (ICD-10 - I10) Per JNC 8 guidelines, goal BP < 140/90 (150/90 if age >60), is meeting goal on current regimen. Advised heart-healthy diet, sodium restriction May, Primary osteoarthritis of left knee (ICD-10 - M1 7.12) referral placed to [facility] orthopedics per patient request May, Vitamin D deficiency (ICD-10 - E55.9) levels in normal range on vitamin D supplements May, Encounter for other screenin g for malignant neoplasm of breast (ICD-10 - Z12.39) patient scheduled for mammogram in July 2021 May, Other Total time spen t with the patient on the day of the encounter: 25 minutes PLAN OF TREATMENT Medication Medication Name Sig Start Date Stop Date Atorvastatin Calcium 20 MG 1 tablet Orally Once a day for 90 day (s) Treatment Notes Assessment Notes Clinical Notes Hyperlipidemia, unspecified based upon u pdated AHA/ACC cholesterol guidelines 2013, pt's LDL is reduced by current statin tx by sufficient percentage based on 10 year ASCVD risk stratification; no adjustments in statin tx needed Essential (primary) hypertension Per JNC 8 guidelines, goal BP < 140/90 (150/90 if age >60), is meeting goal on current regimen. Advised heart-healthy diet, sodium restriction Primary osteoarthritis of left knee refe rral placed to [facility] orthopedics per patient request Vitamin D deficiency levels in normal ra nge on vitamin D supplements Encounter for other screening for malignant neoplasm of cheo st patient scheduled for mammogram in July 2021 Future Test Test Name Order Date [facility] Terence Screening Bilateral (Ultrasound if Indicated ) (3D Mammo) [id number] Referrals Referral Date Details 2021-06-17 2021-06-17, 71y/o female wit h history of left knee osteoarthritis, she has been getting hyaluronic acid injections for years and would like to discuss alternative treatment options, Carroll Campos [facility] Next Appt Details 6 Months Reason: Provider Name:Alex Gaona, 2021-11 01:15:00 PM, [id number], , [place], [address], Insurance Providers Payer Name Payer Address Payer Phone Insured Name Patient Relati onship to Insured Coverage Start Date Coverage End Date MEDICARE Part A and B [address] [facility] [phone] DADA DÍAZ [facility] [address] [facility] [id number] DADA DÍAZ [id number]
--- OUTSIDE RECORDS SUMMARY | 2021-08-22 06:25 | CCD | Continuity of Care Document ---
Author Author Tanya ARZOLA MD Organization Unknown Address [address] , [facility] [place] [address] Phone [phone] Care Team Providers Care Rock Cutter Name Role Phone Vane Miller P.A.-C AUTM [phone] AUTM Unavailable Alex Gaona M.D. AUTM [phone] Problems Active Problems Provider Date Essential hypertension Onset: 06/29/2016 Social History Type Date Description Comments Sex Unknown ETOH Use 5-7 Drinks Per Week Tobacco Use Start: Unknown Patient has never smoked Recreational Drug Use Denies Drug Use Smoking Status Reviewed: 07/11/21 Patient has never smoked Allergies and adverse reactions Description No Known Drug Allergies Medications Active [...] lb BMI (Body Mass Index) 33.5 kg/m2 [place] Body Weight 120 lb Weight 88.452 kg BSA (Body Surface Area) 1.94 m2 08/08/2016 11:32am BP Systolic 168 mmHg BP Diastolic 100 mmHg Height 64 inches 5'4" Weight 208.38 lb BMI (Body Mass Index) 35.8 kg/m2 [place] Body Weight 120 lb Weight 94.519 kg BSA (Body Surface Area) 1.99 m2 Results Description No Information Available Procedures Date Code Description Status 07/11/2021 06817 Office/Outpatient Established Mo d MDM 30-39 Min Completed 06/17/2021 84016 Office/Outpatient New Moderate M DM 45-59 Minutes Completed Medical Devices Description No Information Available Encounters Type Date Location Provider Dx Diagnosis Office Visit 07/11/2021 8:30a [facility] Carroll Arzola MD M17.0 Bilateral primary osteoarthritis of knee Office Visit 06/17/2021 10:30a [facility] Carroll Arzola MD M17.0 Bilateral primary osteoarthritis of knee Assessments Date Code Description Provider 07/11/2021 M17.0 Bilateral osteoarthritis of knee s Carroll Arzola MD 06/17/2021 M17.0 Bilateral osteoarthritis of knee s Carroll Arzola MD Plan of Treatment Future Appointment(s):* 09/30/2021 8:00 am - Carroll Arzola MD at [facility] 07/11/2021 - Carroll Arzola MD* M17.0 Bilateral osteoarthritis of knees* Comments:* Patient demonstrates bilateral knee genu valgum with osteoarthritic change. Her left knee is most symptomatic. She has discussed this with her primary care and she would like to go ahead with a left total knee arthroplasty.I did explain to the [...] not limited to, heart attack, stroke and .Total knee arthroplasty patients typically fall into 3 categories of outcomes. Approximately 85% of patients are happy with the results and would have the surgery performed, again without any concerns. Approximately 10-15% of patients are happy with the results and would have the surgery performed. Again, but may have some persistent aches and pains or other symptoms. These p atients typically have had a fracture of bone around the joint or if they had an open surgical procedure or infection around the joint. Approximately 1% of patients have the joint replacement procedure performed and did not experience any alleviation or sometimes worsening of her symptoms. If there is no identifiable cause of their persistent or worsening symptoms, then there is nothing that can be done. If there is no obvious cause of pain or discomfort, it can take a prolonged period of time in determining cause, if any, is the early period for a total joint replacement is approximately 1 year whereas the early period for most surgical intervention to 6 weeks.Patient was informed of the [employer] robot program and the intention to utilize this program during the procedure.We will move forward with the booking process. The patient has consented to the procedure. * Follow up:* Booking left total knee Functional Status Description No Information Available Mental Status Description No Information Available Referrals Description No Information Available
--- OUTSIDE RECORDS SUMMARY | 2021-08-22 06:25 | CCD ---
Author Author [facility] Organization [facility] Address Unknown Phone Unavailable Care Team Providers Care Polisher And Sander Name Role Phone MCELHERAN, PAULA PA Unavailable Unavailable MCELHERAN, PAULA PA Unavailable Unavailable MCELHERAN, PAULA PA Unavailable Unavailable MCELHERAN, PAULA PA Unavailable Unavailable MCELHERAN, PAULA PA Unavailable Unavailable MCELHERAN, PAULA PA Unavailable Unavailable MCELHERAN, PAULA PA Unavailable Unavailable MCELHERAN, PAULA PA Unavailable Unavailable MCELHERAN, PAULA PA Unavailable Unavailable MCELHERAN, PAULA PA Unavailable Unavailable MCELHERAN, PAULA PA Unavailable Unavailable MCELHERAN, PAULA PA Unavailable Unavailable MCELHERAN, PAULA PA Unavailable Unavailable MCELHERAN, PAULA PA Unavailable Unavailable MCELHERAN, PAULA PA Unavailable Unavailable MCELHERAN, PAULA PA Unavailable Unavailable MCELHERAN, PAULA PA Unavailable Unavailable MCELHERAN, PAULA PA Unavailable Unavailable MCELHERAN, PAULA PA Unavailable Unavailable MCELHERAN, PAULA PA Unavailable Unavailable MCELHERAN, PAULA PA Unavailable Unavailable MCELHERAN, PAULA PA Unavailable Unavailable MCELHERAN, PAULA PA Unavailable Unavailable MCELHERAN, PAULA PA Unavailable Unavailable MCELHERAN, PAULA PA Unavailable Unavailable MCELHERAN, PAULA PA Unavailable Unavailable MCELHERAN, PAULA PA Unavailable Unavailable MCELHERAN, PAULA PA Unavailable Unavailable MCELHERAN, PAULA PA Unavailable Unavailable Carroll Campos MD Unavailable Unavailable Carroll Campos MD Unavailable Unavailable Carroll Campos MD Unavailable Unavailable Carroll Campos MD Unavailable Unavailable Carroll Campos MD Unavailable Unavailable Carroll Campos MD Unavailable Unavailable Carroll Campos MD Unavailable Unavailable Carrlol Campos MD Unavailable Unavailable Carroll Campos MD Unavailable Unavailable Carroll Campos MD Unavailable Unavailable Re-disclosure Warning The records that you are about to access may contain information from federally-assisted alcohol or drug abuse programs. If such information is present, then the following federally mandated warning applies: This information has been disclosed to you from records protected by federal confidentiality rules (42 CFR part 2). The federal rules prohibit you from making any further disclosure of this information unless further disclosure is expressly permitted by the written consent of the person to whom it pertains or as otherwise permitted by 42 CFR part 2. A general authorization for the release of medical or other information is NOT sufficient for this purpose. The Federal rules restrict any use of the information to criminally investigate or prosecute any alcohol or drug abuse patient.The records that you are about to access may contain highly sensitive health information, the redisclosure of which is protected by Article 27-F of the [facility] Public Health law. If you continue you may have access to information: Regarding HIV / AIDS; Provided by facilities licensed or operated by the [facility] Office of Mental Health; or Provided by the [facility] Office for People With Developmental Disabilities. If such information is present, then the following [facility] mandated warning applies: This information has been disclosed to you from confidential records which are protected by state law. State law prohibits you from making any further disclosure of this information without the specific written consent of the person to whom it pertains, or as otherwise permitted by law. Any unauthorized further disclosure in violation of state law may result in a fine or custodial sentence or both. A general authorization for the release of medical or other information is NOT sufficient authorization for further disc losure. Family History Family Member Name Family Member Gender Family Member Status Date o f Status Description Data Source(s) Unknown Male Problem MEDENT ([facility]) Unknown Female Problem MEDENT ([facility]) Unknown Female Unknown Unknown Problem MEDENT ([facility]) Encounters Encounter Providers Location Date Indications Data Source(s ) [place] [address] [address] 08/19/2021 12:00:00 AM EDT eCW1 ([facility]) [place] [address] [address] 08/17/2021 12:00:00 AM EDT eCW1 ([facility]) Outpatient Attender: Carroll Queen/Vilonia/Brett/Rein dl 07/11/2021 08:30:00 AM EDT MEDENT ([facility]) Outpatient Attender: Carroll Queen/Vilonia/Brett/Rein dl 06/17/2021 10:30:00 AM EDT [facility] ([facility]) [place] [address] [facility] [address] 06/03/2021 12:00:00 AM EDT eCW1 ([facility]) [place] [address] [address] 05/30/2021 12:00:00 AM EDT eCW1 ([facility]) Office Visit Attender: PAULA LOVELL Physical [facility] 03/31/2021 08:30:00 AM EDT MEDENT ([facility]) Office Visit Attender: PAULA LOVELL Physical Therapy 03/24/2021 10:15:00 AM EDT MEDENT ([facility]) Office Visit Attender: PAULA LOVELL Physical Therapy 03/17/2021 09:15:00 AM EDT MEDENT ([facility]) Office Visit, Est Pt., Level 3 PC [address] [place] [address] 11/29/2020 12:00:00 AM EST eCW1 ([facility]) Immunizations Vaccine Date Status Description Data Source(s) COVID-19 VACCINE Pfizer 07/09/2021 12:00:00 AM EDT completed [facility] Vaccine Series Complete: YESThis Data wa s Submitted to [facility] Via [employer]. COVID-19 dose #2 given elsewhere Unspecified 11/30/2020 07:4 9:00 AM EST completed eCW1 ([facility]) COVID-19 dose #2 given elsewhere Unspecified 11/30/2020 07:4 9:00 AM EST completed eCW1 ([facility]) COVID-19 dose #2 given elsewhere Unspecified 11/30/2020 07:4 9:00 AM EST completed eCW1 ([facility]) COVID-19 dose #2 given elsewhere Unspecified 11/30/2020 07:4 9:00 AM EST completed eCW1 ([facility]) COVID-19 VACCINE Pfizer 11/30/2020 12:00:00 AM EST completed [facility] Vaccine Series Complete: YESThis Data wa s Submitted to [facility] Via [employer]. COVID-19 dose #1 given elsewhere Unspecified 11/09/2020 07:4 8:00 AM EST completed eCW1 ([facility]) COVID-19 dose #1 given elsewhere Unspecified 11/09/2020 07:4 8:00 AM EST completed eCW1 ([facility]) COVID-19 dose #1 given elsewhere Unspecified 11/09/2020 07:4 8:00 AM EST completed eCW1 ([facility]) COVID-19 dose #1 given elsewhere Unspecified 11/09/2020 07:4 8:00 AM EST completed eCW1 ([facility]) COVID-19 VACCINE Pfizer 11/09/2020 12:00:00 AM EST completed [facility] Vaccine Series Complete: NOThis Data was Submitted to [facility] Via [employer]. Medications No Information Insurance Providers Payer name Policy type / Coverage type Policy ID Covered libertarian ID Covered libertarian's relationship to tavares Policy Tavares Plan Information [facility] Part B [id number] Family Dependent 8 [id number] [facility] Medigap Part B [id number] Family Dependent 8 [id number] [facility] Part B [id number] Family Dependent 8 [id number] [facility] Part B [id number] Family Dependent 8 [id number] [facility] Part B [id number] Family Dep endent [facility] Part B [id number] Family Dependent 8 [id number] [facility] Part B [id number] Family Dependent 8 [id number] [facility] Part B [id number] Family Dependent 8 [id number] [facility] Part B [id number] Family Dependent 8 [id number] [facility] Part B [id number] Family Dependent 8 [id number] ANSI-Commercial [id number] Medicare [place] Primary [id number] Self 2 [id number] ANSI-Commercial [id number] ANSI-Medicare Part B [id number] Medicare [place] Medicare Primary [id number] Self 2 [id number] Medicare [place] Medicare Primary [id number] Self 2 [id number] ANSI-Commercial [id number] ANSI-Medicare Part B [id number] Medicare [place] Medicare Primary [id number] Self 2 [id number] MEDICARE [id number] SP [id number] A MEDICARE C [id number] S [id number] A ANSI-Medicare Part B [id number] ANSI-Commercial [id number] Medicare [place] Medicare Primary [id number] Self 1 [id number] Medicare [place] Medicare Primary [id number] Self 1 [id number] Medicare [place] Medicare Primary [id number] Self 1 [id number] Medicare [place] Medicare Primary [id number] Self 1 [id number] Medicare [place] Medicare Primary [id number] Self 1 [id number] [facility] Part B [id number] Family Dependent Medicare [place]/[facility] Medicare Primary [id number] Self [employer] O [id number] S [id number] [employer] [id number] HU2 89 [id number] Medicare [place] Medicare Primary [id number] Self [facility] Health Maintenance Organization (HMO) [id number] Family Dependent [facility] Commercial [id number] Family Depende nt EMPIRE BLUE CROSS BLUE SHIELD -O/P [id number] 01 [id number] UNITED HEALTHCARE [id number] HU2 89 [id number] MEDICARE [id number] SP [id number] BCBS EMPIRE ERIK DIV [id number] HU2 [id number] UNITED HEALTHCARE [id number] HU2 89 [id number] BCBS EMPIRE ERIK DIV [id number] SP [id number] MEDICARE C [id number] S [id number] EMPIRE (STATE EMP) O [id number] P [id number] BCBS EMPIRE ERIK DIV [id number] HU2 [id number] ANSI-Medicare Part B [id number] Problems, Conditions, and Diagnoses Code Display Name Description Problem Type Effective Dates Data Source(s) 272.4 Hyperlipidemia Hyperlipidemia Problem 08/17/2021 12:00: 00 AM EDT eCW1 ([facility]) 401.9 Essential hypertension Essential hypertension Problem 08/17/2021 12:00:00 AM EDT eCW1 ([facility]) M17.12 [id number] Primary osteoarthritis of left knee Pr oblem 05/30/2021 12:00:00 AM EDT eCW1 ([facility]) Surgeries/Procedures Procedure Description Date Indications Data Source(s) OFFICE OUTPATIENT VISIT 25 MINUTES 07/11/2021 12:00:00 AM EDT MEDENT ([facility], ) OFFICE OUTPATIENT NEW 45 MINUTES 06/17/2021 12:00:00 A M EDT MEDENT ([facility], ) ARTHROCENTESIS ASPIR&/INJECTION MAJOR JT/BURSA 021 12:00:00 AM EDT MEDENT ([facility]) ARTHROCENTESIS ASPIR&/INJECTION MAJOR JT/BURSA 021 12:00:00 AM EDT MEDENT ([facility]) ARTHROCENTESIS ASPIR&/INJECTION MAJOR JT/BURSA 021 12:00:00 AM EDT MEDENT ([facility]) Results ID Date Data Source Comprehensive Metabolic Profile (CMP) 08/17/2021 12:00:00 AM EDT eCW1 ([facility]) Name Value Range Interpretation Code Description Data Felisa rce(s) Supporting Document(s) 85 70-100 eCW1 ([facility]) 16 7-18 eCW1 ([facility]) > 60.0 >39 eCW1 ([facility]) 139 136-145 eCW1 ([facility]) 0.88 0.55-1.30 eCW1 ([facility]) 4.1 3.5-5.1 eCW1 ([facility]) 107 98-107 eCW1 ([facility]) 27 21-32 eCW1 ([facility]) 9.2 8.8-10.2 eCW1 ([facility]) 12 7-37 eCW1 ([facility]) 24 12-78 eCW1 ([facility]) 3.6 3.2-5.2 eCW1 ([facility]) 7.3 6.4-8.2 eCW1 ([facility]) 104 45-117 eCW1 ([facility]) 0.6 0.2-1.0 eCW1 ([facility]) 1.0 1.2-2.2 eCW1 ([facility]) ID Date Data Source CBC - Complete Blood Count 08/17/2021 12:00:00 AM EDT eCW1 ( [facility]) Name Value Range Interpretation Code Description Data Felisa rce(s) Supporting Document(s) 4.53 4.00-5.40 eCW1 ([facility]) 7.4 4.0-10.0 eCW1 ([facility]) 30.9 27.0-33.0 eCW1 ([facility]) 14.0 12.0-15.5 eCW1 ([facility]) 32.8 32.0-36.5 eCW1 ([facility]) 94.3 80.0-96.0 eCW1 ([facility]) 42.7 36.0-47.0 eCW1 ([facility]) 262 150-450 eCW1 ([facility]) 12.4 11.5-14.5 eCW1 ([facility]) ID Date Data Source [id number] 07/29/2020 12:00:00 AM EDT [facility] Alex Gaona MD Patient Name: DADA DÍAZ [id number] [address] Date of : 1[place]FFI [id number] Date of Exam: 07/29/2020#: Fax: [phone] EXAM: MAMMO SCREENING WITH CADCLINICAL INFORMATION: Screening.Based on the personal and family history information your patient suppliedat the time of imaging, her lifetime risk of breast cancer estimated by theTyrer-Cuzick model is 9.1%. Given that this patient has less than 20% TCrisk score, no further medical management is currently recommended at thistime.The patient has previously received genetic testing.Digital screening (2D) mammography was performed bilaterally in the CC andMLO projections. Additionally, breast tomosynthesis (3D mammography) wasperformed bilaterally in the CC and MLO projections. Today's exam wascompared to the prior exam(s).By history, the patient has no complaints of a palpable breast abnormalityor other significant breast complaints.The patient states that a clinical breast exam was not performed.The breasts are unchanged in size and shape. There are no rei-soft tissuedensities or spiculated masses. There is no internal architecturaldistortion. There are no suspicious rei-calcific clusters. Skinthickening or nipple retraction is not present. Benign calcifications areagain seen bilaterally.The Volpara volumetric breast density category is B, there are scatteredareas of fibroglandular density.IMPRESSION:BI-RADS Category 2 - Benign Finding(s). Stable mammogram. There is noevidence of malignant alteration of the breasts. Followup examinationrecommended in one year.This mammogram was read with the assistance kristina Maloney [employer], an FDAapproved computer aided detection system for mammography.Negative x-ray reports should not delay surgical consultation if a dominantor clinically suspicious mass is present.Not all breast cancers can be identified by mammography. Therefore, werecommend that you continue to perform regular breast self-examination andphysical examination and then promptly contact your physician of anyconcerns or changes.Adenosis and dense breasts may obscure an underlying neoplasm.SUMMER Harden/Danitza you for referring DADA DÍAZ to our office. Electronically Signed - SCAR ACEVEDO DO 07/29/20 16:40 Name Value Range Interpretation Code Description Data Felisa rce(s) Supporting Document(s) Procedure Social History Code Duration Value Status Description Data Source(s ) Smoking 08/17/2021 12:00:00 AM EDT Never Smoker completed Never S moker eCW1 ([facility]) Smoking 08/17/2021 12:00:00 AM EDT Never Smoker completed Never S moker eCW1 ([facility]) Smoking 07/11/2021 12:00:00 AM EDT Patient has never smoked co mpleted Patient has never smoked MEDENT ([facility], ) Smoking 05/30/2021 12:00:00 AM EDT Never Smoker completed Never S moker eCW1 ([facility]) Smoking 05/30/2021 12:00:00 AM EDT Never Smoker completed Never S moker eCW1 ([facility]) Smoking 11/29/2020 12:00:00 AM EST Never Smoker completed Never S moker eCW1 ([facility]) Vital Signs ID Date Data Source UNK Name Value Range Interpretation Code Description Data Source(s) Body weight 202 [lb_av] 202 [lb_av] eCW1 ([facility]) Body height 64 [in_i] 64 [in_i] eCW1 ([facility]) Body mass index (BMI) [Ratio] 34.67 kg/m2 34.67 kg/m2 W1 ([facility]) Heart rate 110 /min 110 /min eCW1 ([facility]) Respiratory rate 18 /min 18 /min eCW1 ([facility]) Body temperature 97.6 [degF] 97.6 [degF] eCW1 ( [facility]) Systolic blood pressure 132 mm[Hg] 132 mm[Hg] e CW1 ([facility]) Diastolic blood pressure 76 mm[Hg] 76 mm[Hg] eCW1 ([facility]) Body surface area Derived from formula 1.94 m2 1.94 m2 MEDENT ([facility], ) Body height 64 [in_i] 64 [in_i] MEDENT ([facility]) 5'4" Body weight 195.00 [lb_av] 195.00 [lb_av] MEDEN T ([facility]) Body mass index (BMI) [Ratio] 33.5 kg/m2 33.5 k g/m[facility] [place] body weight 120 [lb_av] 120 [lb_av] MEDEN T ([facility]) Body weight 88.452 kg 88.452 kg [facility] ([facility]) Respiratory rate 18 /min 18 /min eCW1 ([facility]) Body height 64 [in_i] 64 [in_i] eCW1 ([facility]) Body mass index (BMI) [Ratio] 33.47 kg/m2 33.47 kg/m2 W1 ([facility]) Heart rate 102 /min 102 /min eCW1 ([facility]) Body weight 195 [lb_av] 195 [lb_av] eCW1 ([facility]) Body weight 88.45 kg 88.45 kg eCW1 ([facility]) Systolic blood pressure 138 mm[Hg] 138 mm[Hg] e CW1 ([facility]) Diastolic blood pressure 80 mm[Hg] 80 mm[Hg] eCW1 ([facility]) Body temperature 97.4 [degF] 97.4 [degF] eCW1 ( [facility]) Body weight 192 [lb_av] 192 [lb_av] eCW1 ([facility]) Body height 64 [in_i] 64 [in_i] eCW1 ([facility]) Body mass index (BMI) [Ratio] 32.95 kg/m2 32.95 kg/m2 eCW1 ([facility]) Heart rate 92 /min 92 /min eCW1 ([facility]) Respiratory rate 18 /min 18 /min eCW1 ([facility]) Body temperature 98.8 [degF] 98.8 [degF] eCW1 ( [facility]) Systolic blood pressure 152 mm[Hg] 152 mm[Hg] e CW1 ([facility]) Diastolic blood pressure 84 mm[Hg] 84 mm[Hg] eCW1 ([facility])
[2021-08-22] MEDS ORDERED: ROPIVA 125MG/EPINEPH 0.25MG/CLONID 40MCG/KETOR 15MG IN NS 50ML SYRINGE PA ONE (07:00)
[2021-08-22] MEDS ORDERED: TRANEXAMIC ACID 100 MG/ML 10ML VIAL As Ordered ONE ×2 (07:15→09:55)
[2021-08-22] MEDS ORDERED: propofoL 200 MG/20 ML VIAL As Ordered ONE ×5 (07:56→10:08)
[2021-08-22] MEDS ORDERED: fentaNYL 100 MCG/2 ML INJECTION (J3010) As Ordered ONE ×2 (07:56→10:25)
[2021-08-22] MEDS ORDERED: MIDAZOLAM INJ 2MG/2ML VIAL (J2250 PER 1MG) As Ordered ONE (07:56)
[2021-08-22] MEDS ORDERED: PHENYLephrine 500MCG 5ML (100MCG/ML) SYRINGE As Ordered ONE (08:02)
[2021-08-22] MEDS: LOSARTAN 25 MG TAB PO SCH (09:00)
[2021-08-22] MEDS: ASPIRIN 81MG ENTERIC TABLET PO SCH ×2 (09:00→20:18)
[2021-08-22] MEDS ORDERED: oxyCODONE 5MG TAB PO PRN ×3 (10:55)
[2021-08-22] MEDS ORDERED: SENNA 8.6 MG TAB (SENOKOT) PO PRN (10:55)
[2021-08-22] MEDS ORDERED: ONDANSETRON 4MG/2ML VIAL IV PRN ×2 (10:55)
[2021-08-22] MEDS ORDERED: LR 1,000 ML IV SCH (10:55)
[2021-08-22] MEDS: fentaNYL 100 MCG/2 ML INJECTION (J3010) IV PRN ×2 (11:09→11:19)
--- NOTE | 2021-08-22 11:11 | ROOPDOC ---
[facility] Report Of Operation Report of Operation DATE OF PROCEDURE: 08/22/21 PREPROCEDURE DIAGNOSES: Left knee osteoarthritis POSTPROCEDURE DIAGNOSES: Left knee osteoarthritis PROCEDURE PERFORMED: Left Agapito total knee SURGEON: Evans Arzola MD MOBILITY ARCHITECT: Gretchen Mac PA-C ANESTHESIA: Spinal. ESTIMATED BLOOD LOSS: Approximately less than 100 mL. COMPLICATIONS: No known complications. REMARKS: Patient was seen in the preoperative area and her left knee was marked. Consent was reviewed for the Agapito left total knee arthroplasty as well. Risks and benefits were discussed as previously described. Components: Romelia triathlon system hybrid fixation 29 mm patella cemented Size 3 tibia press-fit and size 4 femur PS cemented 13 mm PS polyethylene FINDINGS: Tricompartmental osteoarthritis left knee SPECIMENS REMOVED: None PROCEDURE NOTE: The patient was seen in the preoperative area and her status was updated. [facility] plan was reviewed prior to surgery and adjusted appropriately. DESCRIPTION OF PROCEDURE: Patient was taken to the operating room and after a checklist was performed, the underwent a spinal anesthetic. The patient was then placed supine. The operative leg was then cleansed with chlorhexidine wash followed by 2 times alcohol swab followed by hydrogen peroxide wash. 2 chlorhexidine prep once were then used to clean the leg. The operative extremity was then prepped and draped in the standard sterile fashion. This was done utilizing the Agapito leg tavares device. A surgical pause was then carried out followed by the surgical safety checklist. 2 stab hole incisions were made approximately 4 fingerbreadths below the tibial tubercle of the left knee for the tibial array pins which were placed. The midline incision over the knee followed by the medial arthrotomy was then carried out. Cautery was used to control bleeders. The soft tissue and fat pad were removed using electrocautery. The femoral array pins were then placed in the medial femoral condyle. The arrays were then placed over the array pins and points to be utilized as the trackers were marked on the arrays. The hip center was checked followed by the medial and lateral condyles of the ankle. The registration of the femur and tibia then occurred using the arrays in the Agapito system. Osteophytes were removed at this point, as needed. The leg was then brought into extension and varus and valgus stresses were applied in extension and spoons were used for tensioning as well as a Heath in flexion of approximately 95 degrees. Once the soft tissue adjustments were made to the Agapito plan, the plan was carried out utilizing the robot. The 90 degree blade cuts were made first followed by the straight blade cuts. Once all the cuts were completed with the assistance of the [employer] robot, the rongeur and osteotome were used to remove the bone segments. A lamina barber stylist was used to help remove the medial lateral menisci remnants followed by a curved osteotome to remove any posterior osteophytes from the medial or lateral femoral condyles. A trial femur was placed and secured with a pin. A recut with 1 degree of valgus and 1 mm more off the proximal tibia had to be performed in order to allow placement of the trial tibia. The tibial component was then placed with a 10 mm polyinsert. This was brought into extension and found to have some medial opening in both flexion and extension. There was still some medial opening instability and the decision was made to convert to PS component. The PS block was affixed and the osteotome and reciprocating saw were used to remove the box cut. The lug holes were drilled appropriately. After conversion to the PS component it appeared that either 13 or 14 mm PS component would be appropriate. The leg was then brought into extension and the patella was measured using the caliper. A freehand cut using towel clips was used to remove the patellar surf fede. This was then clamped and reamed appropriately for the press-fit components. A trial was placed and taken through range of motion and found to be relatively stable. The tibia was then appropriately positioned with the correct amount of rotation lined up with the medial third of the tibial tubercle. This was pinned and the keel punch was completed followed by the four-point reaming for the press-fit component. The RE CK local anesthetic cocktail was instilled in the standard fashion. The wound was thoroughly irrigated with pulse lavage. The tibia was then press-fit in position using the mallet and impactors. The femur was then flexed high and positioned aligning the lug holes. This component was impacted then brought out into 90 degrees and impacted further to avoid anywhere to the metal components. The 13 mm and then 14 mm polyethylene insert were then trialed. Unfortunately this caused the femoral component to dislodge from the femur. The decision was made to convert this to a cemented component. The arrays and array pins were removed at this point While the femoral cementing component material was being opened, the press-fit patella was attached to the patella under pressure. Unfortunately this was loose and came off and the decision was also made to cement this component as well. The tibia was revisited. There is no evidence of loosening or otherwise with this press-fit component Antibiotic cement was then mixed using the Simplex system. This was applied to the femur and to the femoral component. This was impacted and allowed to sit in extension. Excess material was removed with a [place] and then later with 1/4 inch curved osteotome. Following this the cement was applied to the patella and the patellar component and this was compressed and held in position with excess cement being extruded and removed with the [place]. Topical tranexamic acid was allowed to sit in the wound for approximately 3 minutes with the leg sitting in extension and the cement drying. Once the cement was dry, a trial 14 mm polyethylene was attempted. It was too tight in flexion so the decision was made to stick with the PS 13 mm polyeth ylene. This provided acceptable stability in flexion and extension. There did not appear to be any hyperextension or flexion contracture and there appeared to be some correction of the valgus that was noted. Of note some of this will still exist as the patient does have some significant valgus to her femur in particular with regards to her anatomy. The leg was taken through stable range of motion. It was thoroughly irrigated. Electrocautery was used to control any bleeders. A layered closure using #1 Vicryl followed by strata fix for the arthrotomy. #1 Vicryl to close down the subcutaneous tissue followed by running subcutaneous 2.0 and then a three-point 0 Monocryl subcuticular stitch antibacterial for the pinholes incisions at the tibia level. Due to the patient's skin and subcutaneous fat a running locking nylon suture was used to close the skin superficially. Layered irrigation with saline and Betadine occurred. Mepilex dressing was applied. ABD pads and Fede wrap were applied. Patient tolerated the procedure well with no known complications. They were taken to the recovery room in stable condition. The patient will be admitted to the hospitalist service with plan for evaluation with physical therapy and possible discharge home tomorrow. Discharge Instructions Total Knee Arthroplasty 1. Pain: You may take oxycodone as prescribed for pain. Supplement with Naproxen and Tylenol as needed. Ice pack to operative knee as tolerated. 2. Wound care: Remove dressing on postop day 7. Call [phone] with any questions or concerns. Hygiene: The patient may shower. No tub baths. Check dressing seal prior to bathing. 3. Activity: WBAT left lower extremity. Front wheeled walker versus crutches for ambulation. Fall precautions. 4. Driving: No driving until cleared by your surgeon. Do not drive if taking narcotic pain medications as these may make you drowsy. 5. DVT Prophylaxis: Continue taking aspirin 81 mg p.o. twice daily as prescribed for the prevention of blood clots. Ankle pumps every 1 hour while awake. BRANDON hose at all times for 1 month after surgery. May remove for hygiene and wound care. 6. Placement: Plan is to discharge patient to home with home health including nursing and physical therapy. 7. Surgeon Follow-up: The patient is scheduled to be seen in Dr. Arzola's office 2 weeks post op with xrays. 8. Primary care Follow-up: Please see your primary care provider in the next 2 to 5 weeks for general medical re-evaluation and medication review. 9. Labs: CBC without differential to be drawn on postop day 3 with results to PCP and please fax to [phone]. 10. Please contact [facility] if you have any questions or concerns at [phone]. EVANS ARZOLA MD Aug 22, 2021 11:11
--- NOTE | 2021-08-22 11:14 | REP ---
INDICATION: post op COMPARISON: 06/17/2021 a standing AP view TECHNIQUE: AP and lateral views FINDINGS: Right knee arthroplasty has been placed since the last exam. The femoral and tibial components of which appear well seated and well approximated. The alignment is near anatomical. There is expected postoperative soft tissue swelling. IMPRESSION: Status post TKR as described above. <Electronically signed by Patrice Sidhu > 08/22/21 [id number]
[2021-08-22] MEDS: ACETAMINOPHEN TAB 650MG DOSE (2X325MG) PO SCH ×3 (13:01→23:19)
--- NOTE | 2021-08-22 14:58 | HPEPDOC ---
[facility] Medical History & Physical Date of Admission Aug 22, 2021 Date of Service: Aug 22, 2021 History and Physical Chief complaint: Who presented to the [facility] for an elective left knee arthroplasty History of present illness: Patient is a 71-year-old female with a PMHx of HTN, DLP, Vitamin D deficiency, OA, who presented to [facility] for elective orthopedic procedure. Patient received medical history primary care provider, Dr. Gaona on 08/17/2021. Patient is seen postoperatively on 5 [address]QU[address]. Hospitalist service was called for medical screening evaluation and to assume her care. Patient denies any headache, nausea, vomiting, chest pain, shortness of breath, palpitations, cough, abdominal pain, diarrhea, constipation, or urinary discomfort. Her last bowel movement was yesterday. Patient denies any recent fevers, chills. Reports her weight and appetite have been fairly consistent. Past Medical History: HTN DLP Vitamin D deficiency OA Past Surgical History: Bilateral benign breast mass biopsy Colonoscopy 02/2010 - Found to have hemorrhoids and diverticulosis Colonoscopy 10/2015 - Found tubular adenoma; recommended to have colonoscopy in 5 years DEXA; no osteoporosis but evidence of osteopenia Tubal ligation Transvaginal hysterectomy with bilateral salpingo-oophorectomy 2003 Bilateral ankle surgeries 2006, 2007 Cholecystectomy 2011 Allergies: See below Medications: See below Family History: - Noncontributory Social History: - Denies the use of tobacco or illicit drugs; drinks alcohol socially - Denies recent travel or sick contacts - Lives with - Occupation; patient is retired as a staffing branch manager at [employer] Review of Systems: 10 point review of systems complete, all negative otherwise stated in HPI Physical exam: - Vitals: BP [137/85], HR [100], RR [17], Sat [93%NC1L], Temp [98.2F] - General: Lying in bed, Speaking in full sentences, AAOx3 - HEENT: NC, AT, PERRLA - CVS: RRR, +S1S2, - Murmurs / rubs / gallops - Lungs: Fair air entry bilaterally, No appreciable wheezing / rales / rhonchi - Abdomen: Soft, Non-distended, Non-tender - Extremities: No lower extremity edema, No calf tenderness - Neuro: No focal motor or sensory deficit - Skin: No visible rashes Labs: See below Imaging: See below EKG: See below Assessment and Plan: Total left knee arthroplasty (POD#0) - She presented to [facility] for an elective procedure with orthopedic surgery - She has received outpatient medical clearance from her primary care provider - Pain control, anticoagulation and physical therapy at the direction of orthopedic team HTN - BP well controlled - c/w Losartan with hold parameters DLP - c/w Atorvastatin Vitamin D deficiency - Will continue with supplementation on discharge DVT prophylaxis - Will c/w ASA 81 BID as per orthopedic surgery Vital Signs Vital Signs Date Time Temp Pulse Resp B/P (MAP) Pulse Ox O2 Delivery O2 Flow Rate FiO2 08/22/21 14:45 98.4 88 17 137/86 (103) 94 Nasal Cannula 1.0 Home Medications Scheduled Atorvastatin Calcium (Atorvastatin Calcium) 20 Mg Tablet, 20 MG PO DAILY Losartan Potassium (Losartan Potassium) 25 Mg Tablet, 1 TAB PO DAILY Mv-Mn/Iron/Folic Acid/Herb 190 (Vitamin D3 Complete Caplet) 1 Each Tablet, 1 TAB PO DAILY Allergies Coded Allergies: No Known Allergies (Verified , 08/27/08) PAU BRYANT MD Aug 22, 2021 14:58
--- OUTSIDE RECORDS SUMMARY | 2021-08-22 14:59 | CCD ---
Author Author [facility] Organization [facility] Address Unknown Phone Unavailable Care Team Providers Care Ticket Scheduler Name Role Phone MCELHERAN, PAULA PA Unavailable [...] is protected by Article 27-F of the [facility] Public Health law. If you continue you may have access to information: Regarding HIV / AIDS; Provided by facilities licensed or operated by the [facility] Office of Mental Health; or Provided by the [facility] Office for People With Developmental Disabilities. If such information is present, then the following [facility] mandated warning applies: This information has [...] law may result in a fine or care home sentence or both. A general authorization for the release of medical or other information is NOT sufficient authorization for further disc losure. Family History Family Member Name Family Member Gender Family Member Status Date o f Status Description Data Source(s) Unknown Male Problem MEDENT ([facility]) Unknown Female Problem MEDENT ([facility]) Unknown Female Unknown Unknown Problem MEDENT ([facility]) Encounters Encounter Providers Location Date Indications Data Source(s ) Unknown [address] [facility] [address] 08/19/2021 12:00:00 AM EDT eCW1 ([facility]) Outpatient [address] [facility] [address] 08/17/2021 12:00:00 AM EDT eCW1 ([facility]) Outpatient Attender: Carroll Queen/Delmita/Brett/Rein dl 07/11/2021 08:30:00 AM EDT MEDENT ([facility]) Outpatient Attender: Carroll Queen/Delmita/Brett/Rein dl 06/17/2021 10:30:00 AM EDT MEDENT ([facility]) Unknown [address] [facility] [address] 06/03/2021 12:00:00 AM EDT eCW1 ([facility]) Outpatient [address] [facility] [address] 05/30/2021 12:00:00 AM EDT eCW1 ([facility]) Office Visit Attender: PAULA LOVELL Physical Therapy 03/31/2021 08:30:00 AM EDT MEDENT ([facility]) Office Visit Attender: PAULA LOVELL Physical Therapy 03/24/2021 10:15:00 AM EDT MEDENT ([facility]) Office Visit Attender: PAULA LOVELL Physical Therapy 03/17/2021 09:15:00 AM EDT MEDENT ([facility]) Office Visit, Est Pt., Level [address] PC [address] [place] [address] 11/29/2020 12:00:00 AM EST eCW1 ([facility]) Immunizations Vaccine Date Status Description Data Source(s) COVID-19 VACCINE Pfizer 07/09/2021 12:00:00 AM EDT completed [facility] Vaccine Series Complete: YESThis Data wa s Submitted to [facility]. COVID-19 dose #2 given elsewhere Unspecified 11/30/2020 07:4 9:00 AM EST completed eCW1 ([facility]) COVID-19 dose #2 given elsewhere Unspecified 11/30/2020 07:4 9:00 AM EST completed eCW1 ([facility]) COVID-19 dose #2 given elsewhere Unspecified 11/30/2020 07:4 9:00 AM EST completed eCW1 ([facility]) COVID-19 dose #2 given elsewhere Unspecified 11/30/2020 07:4 9:00 AM EST completed eCW1 ([facility]) COVID-19 VACCINE Pfizer 11/30/2020 12:00:00 AM EST completed [facility] Vaccine Series Complete: YESThis Data wa s Submitted to [facility]. COVID-19 dose #1 given elsewhere Unspecified 11/09/2020 07:4 8:00 AM EST completed eCW1 ([facility]) COVID-19 dose #1 given elsewhere Unspecified 11/09/2020 07:4 8:00 AM EST completed eCW1 ([facility]) COVID-19 dose #1 given elsewhere Unspecified 11/09/2020 07:4 8:00 AM EST completed eCW1 ([facility]) COVID-19 dose #1 given elsewhere Unspecified 11/09/2020 07:4 8:00 AM EST completed eCW1 ([facility]) COVID-19 VACCINE Pfizer 11/09/2020 12:00:00 AM EST completed [facility] Vaccine Series Complete: NOThis Data was Submitted to [facility]. Medications No Information Insurance Providers Payer name Policy type / Coverage type Policy ID Covered libertarian ID Covered libertarian's relationship to tavares Policy Tavares Plan Information [facility] [id number] Family Dependent [id number] [facility] Part B [id number] Family Dependent 8 [id number] [facility] [id number] Family Dependent 8 [id number] [facility] [id number] Family Dependent 8 [id number] [facility] [id number] Family Dep endent [facility] Part B [id number] Family Dependent 8 [id number] [facility] Part B [id number] Family Dependent 8 [id number] [facility] Part B [id number] Family Dependent 8 [id number] [facility] Part B [id number] Family Dependent 8 [id number] [facility] Part B [id number] Family Dependent 8 [id number] ANSI-Commercial [id number] [place] Primary [id number] Self 2 [id number] ANSI-Commercial [id number] ANSI-Medicare Part B [id number] Medicare [place] Primary [id number] Self 2 [id number] Medicare [place] Medicare Primary [id number] Self 2 [id number] ANSI-Commercial [id number] ANSI-Medicare Part B [id number] Medicare [place] Primary [id number] Self 2 [id number] MEDICARE [id number] SP [id number] A MEDICARE C [id number] S [id number] A ANSI-Medicare Part B [id number] ANSI-Commercial [id number] Medicare [place] Primary [id number] Self 1 [id number] Medicare [place] Medicare Primary [id number] Self 1 [id number] Medicare [place] Medicare Primary [id number] Self 1 [id number] Medicare [place] Medicare Primary [id number] Self 1 [id number] Medicare [place] Medicare Primary [id number] Self 1 [id number] [facility] Part B [id number] Family Dependent Medicare [place]/[facility] Medicare Primary [id number] Self [employer] O [id number] S [id number] [employer] [id number] HU2 [id number] Medicare [place] Medicare Primary [id number] Self [facility] Health Maintenance Organization (HMO) [id number] Family Dependent [facility] Commercial [id number] Family Depende nt EMPIRE BLUE CROSS BLUE SHIELD -O/P [id number] 01 [id number] UNITED [employer]CARE [id number] HU2 89 [id number] MEDICARE [id number] SP [id number] BCBS EMPIRE ERIK DIV [id number] [id number] UNITED HEALTHCARE [id number] HU2 89 [id number] BCBS EMPIRE ERIK DIV [id number] SP [id number] MEDICARE C [id number] S [id number] EMPIRE (STATE EMP) O [id number] P [id number] BCBS EMPIRE ERIK DIV [id number] HU2 [id number] ANSI-Medicare Part B [id number] Problems, Conditions, and Diagnoses Code Display Name Description Problem Type Effective Dates Data Source(s) 272.4 Hyperlipidemia Hyperlipidemia Problem 08/17/2021 12:00: 00 AM EDT eCW1 ([facility]) 401.9 Essential hypertension Essential hypertension Problem 08/17/2021 12:00:00 AM EDT eCW1 ([facility]) M17.12 [id number] Primary osteoarthritis of left knee Pr oblem 05/30/2021 12:00:00 AM EDT eCW1 ([facility]) Surgeries/Procedures Procedure Description Date Indications Data Source(s) OFFICE OUTPATIENT VISIT 25 MINUTES 07/11/2021 12:00:00 AM EDT MEDENT ([facility], ) OFFICE OUTPATIENT NEW 45 MINUTES 06/17/2021 12:00:00 A M EDT MEDENT ([facility], ) ARTHROCENTESIS ASPIR&/INJECTION MAJOR JT/BURSA 021 12:00:00 AM EDT MEDENT ([facility]) ARTHROCENTESIS ASPIR&/INJECTION MAJOR JT/BURSA 021 12:00:00 AM EDT MEDENT ([facility]) ARTHROCENTESIS ASPIR&/INJECTION MAJOR JT/BURSA 021 12:00:00 AM EDT MEDENT ([facility]) Results ID Date Data Source Comprehensive Metabolic Profile (CMP) 08/17/2021 12:00:00 AM EDT eCW1 ([facility]) Name Value Range Interpretation Code Description Data Felisa rce(s) Supporting Document(s) 85 70-100 eCW1 ([facility]) 16 7-18 eCW1 ([facility]) > 60.0 >39 eCW1 ([facility]) 139 136-145 eCW1 ([facility]) 0.88 0.55-1.30 eCW1 ([facility]) 4.1 3.5-5.1 eCW1 ([facility]) 107 98-107 eCW1 ([facility]) 27 21-32 eCW1 ([facility]) 9.2 8.8-10.2 eCW1 ([facility]) 12 7-37 eCW1 ([facility]) 24 12-78 eCW1 ([facility]) 3.6 3.2-5.2 eCW1 ([facility]) 7.3 6.4-8.2 eCW1 ([facility]) 104 45-117 eCW1 ([facility]) 0.6 0.2-1.0 eCW1 ([facility]) 1.0 1.2-2.2 eCW1 ([facility]) ID Date Data Source CBC - Complete Blood Count 08/17/2021 12:00:00 AM EDT eCW1 ( [facility]) Name Value Range Interpretation Code Description Data Felisa rce(s) Supporting Document(s) 4.53 4.00-5.40 eCW1 ([facility]) 7.4 4.0-10.0 eCW1 ([facility]) 30.9 27.0-33.0 eCW1 ([facility]) 14.0 12.0-15.5 eCW1 ([facility]) 32.8 32.0-36.5 eCW1 ([facility]) 94.3 80.0-96.0 eCW1 ([facility]) 42.7 36.0-47.0 eCW1 ([facility]) 262 150-450 eCW1 ([facility]) 12.4 11.5-14.5 eCW1 ([facility]) ID Date Data Source [id number] 07/29/2020 12:00:00 AM EDT [facility] Alex Gaona MD Patient Name: DADA DÍAZ [id number] Date of : [id number] Date of Exam: 07/29/2020#: Fax: [phone] EXAM: [...] was read with the assistance [employer], an FDAapproved computer aided detection system for [...] Never Smoker completed Never S moker eCW1 ([facility]) Smoking 08/17/2021 12:00:00 AM EDT Never Smoker completed Never S moker eCW1 ([facility]) Smoking 07/11/2021 12:00:00 AM EDT Patient has never smoked co mpleted Patient has never smoked MEDENT ([facility], ) Smoking 05/30/2021 12:00:00 AM EDT Never Smoker completed Never S moker eCW1 ([facility]) Smoking 05/30/2021 12:00:00 AM EDT Never Smoker completed Never S moker eCW1 ([facility]) Smoking 11/29/2020 12:00:00 AM EST Never Smoker completed Never S moker eCW1 ([facility]) Vital Signs ID Date Data Source UNK Name Value Range Interpretation Code Description Data Source(s) Body weight 202 [lb_av] 202 [lb_av] eCW1 ([facility]) Body height 64 [in_i] 64 [in_i] eCW1 ([facility]) Body mass index (BMI) [Ratio] 34.67 kg/m2 34.67 kg/m2 W1 ([facility]) Heart rate 110 /min 110 /min eCW1 ([facility]) Respiratory rate 18 /min 18 /min eCW1 ([facility]) Body temperature 97.6 [degF] 97.6 [degF] eCW1 ( [facility]) Systolic blood pressure 132 mm[Hg] 132 mm[Hg] e CW1 ([facility]) Diastolic blood pressure 76 mm[Hg] 76 mm[Hg] eCW1 ([facility]) Body surface area Derived from formula 1.94 m2 1.94 m2 MEDENT ([facility], ) Body height 64 [in_i] 64 [in_i] MEDENT ([facility]) 5'4" Body weight 195.00 [lb_av] 195.00 [lb_av] MEDEN T ([facility]) Body mass index (BMI) [Ratio] 33.5 kg/m2 33.5 k g/m2 [facility] ([facility]) [place] body weight 120 [lb_av] 120 [lb_av] MEDEN T ([facility]) Body weight 88.452 kg 88.452 kg [facility] ([facility]) Body weight 195 [lb_av] 195 [lb_av] eCW1 ([facility]) Body weight 88.45 kg 88.45 kg eCW1 ([facility]) Body height 64 [in_i] 64 [in_i] eCW1 ([facility]) Body mass index (BMI) [Ratio] 33.47 kg/m2 33.47 kg/m2 W1 ([facility]) Heart rate 102 /min 102 /min eCW1 ([facility]) Respiratory rate 18 /min 18 /min eCW1 ([facility]) Body temperature 97.4 [degF] 97.4 [degF] eCW1 ( [facility]) Systolic blood pressure 138 mm[Hg] 138 mm[Hg] e CW1 ([facility]) Diastolic blood pressure 80 mm[Hg] 80 mm[Hg] eCW1 ([facility]) Body weight 192 [lb_av] 192 [lb_av] eCW1 ([facility]) Body height 64 [in_i] 64 [in_i] eCW1 ([facility]) Body mass index (BMI) [Ratio] 32.95 kg/m2 32.95 kg/m2 eCW1 ([facility]) Heart rate 92 /min 92 /min eCW1 ([facility]) Respiratory rate 18 /min 18 /min eCW1 ([facility]) Body temperature 98.8 [degF] 98.8 [degF] eCW1 ( [facility]) Systolic blood pressure 152 mm[Hg] 152 mm[Hg] e CW1 ([facility]) Diastolic blood pressure 84 mm[Hg] 84 mm[Hg] eCW1 ([facility])
[2021-08-22] MEDS ORDERED: HOME MED LIST COMPLETE! XX SCH (15:15)
[2021-08-22] MEDS: ceFAZolin SOD 2 GM in IV 1 EA IV SCH ×2 (16:42→23:19)
[2021-08-22] MEDS: LR 1,000 ML IV SCH ×2 (16:42→20:55)
[2021-08-22] MEDS: NAPROXEN 250 MG TAB PO SCH (16:42)
[2021-08-22] MEDS: DOCUSATE SODIUM 100MG CAPSULE PO SCH (20:18)
[2021-08-22] MEDS: traMADol 50 MG TAB PO PRN (23:19)
[2021-08-23 01:14] VITALS: BP 123/67
[2021-08-23] MEDS: traMADol 50 MG TAB PO PRN ×2 (04:38→11:00)
[2021-08-23] MEDS: ACETAMINOPHEN TAB 650MG DOSE (2X325MG) PO SCH ×2 (05:55→12:52)
[2021-08-23] MEDS: NAPROXEN 250 MG TAB PO SCH (05:56)
[2021-08-23 06:00] VITALS: BP 120/67
[2021-08-23 06:46] LABS: HEMATOCRIT 30.8 % (36.0-47.0); HEMOGLOBIN 10.5 g/dl (12.0-15.5); MEAN CORPUSCULAR HEMOGLOBIN 31.4 pg (27.0-33.0); MEAN CORPUSCULAR HGB CONC 34.1 g/dl (32.0-36.5); MEAN CORPUSCULAR VOLUME 92.2 fl (80.0-96.0); PLATELET COUNT, AUTOMATED 201 10^3/uL (150-450); RED BLOOD COUNT 3.34 10^6/uL (4.00-5.40); WHITE BLOOD COUNT 8.5 10^3/uL (4.0-10.0)
[2021-08-23] MEDS: LR 1,000 ML IV SCH (06:55)
[2021-08-23 06:58] LABS: BLOOD UREA NITROGEN 17 MG/DL (7-18); CALCIUM LEVEL 8.7 MG/DL (8.8-10.2); CARBON DIOXIDE LEVEL 25 MEQ/L (21-32); CHLORIDE LEVEL 109 MEQ/L (98-107); CREATININE FOR GFR 0.84 MG/DL (0.55-1.30); GLOMERULAR FILTRATION RATE > 60.0 (>39); GLUCOSE, FASTING 92 MG/DL (70-100); MAGNESIUM LEVEL 2.2 MG/DL (1.8-2.4); POTASSIUM SERUM 3.8 MEQ/L (3.5-5.1); SODIUM LEVEL 141 MEQ/L (136-145)
[2021-08-23 07:54] VITALS: BP 120/67
[2021-08-23] MEDS: ASPIRIN 81MG ENTERIC TABLET PO SCH (07:54)
[2021-08-23] MEDS: LOSARTAN 25 MG TAB PO SCH (07:54)
[2021-08-23] MEDS: DOCUSATE SODIUM 100MG CAPSULE PO SCH (07:54)
--- NOTE | 2021-08-23 08:18 | IPNPDOC ---
Text Note Date of Service The patient was seen on 08/23/21. NOTE POD 1 Left TKA Pt is up resting this morning. Reports that she has been up ambulating to the bathroom several times. States pain is minimal and tolerable. Denies CP/SOB. Bulky dressing intact, taken down. Pinpoint amount of staining to dressing. Grossly NVI to light touch to Left foot and ankle. Palpable DP and PT pulses. Moving foot and toes. PACU x-ray imaging shows prosthesis well seated and in position with no obvious complications. Plan for DC home when able after Hospitalist and PT eval. VS,Fishbone, I+O VS, Fishbone, I+O Laboratory Tests 08/23/21 06:21 Vital Signs Date Time Temp Pulse Resp B/P (MAP) Pulse Ox O2 Delivery O2 Flow Rate FiO2 08/23/21 07:54 120/67 08/23/21 06:00 97.7 82 18 94 Room Air 08/22/21 14:45 1.0 I&O- Last 24 Hours up to 6 AM 08/23/21 05:59 Intake Total 2490 ml Output Total 1700 ml Balance 790 ml VALERIY HERRERA Aug 23, 2021 08:17
[2021-08-23] MEDS ORDERED: ASCORBIC ACID 500 MG TAB PO SCH (09:00)
[2021-08-23] MEDS ORDERED: ATORVASTATIN 20 MG TAB PO SCH (09:00)
[2021-08-23] MEDS ORDERED: FERROUS SULFATE 325MG TAB PO SCH (09:00)
[2021-08-23] MEDS ORDERED: FERR1TAB8 PO (09:21)
[2021-08-23] MEDS ORDERED: ASPI-551 PO (09:21)
[2021-08-23] MEDS ORDERED: NAPR-849 PO (09:21)
[2021-08-23] MEDS ORDERED: OXYC-517 PO (09:21)
[2021-08-23] MEDS ORDERED: ASCO50TA PO (09:21)
[2021-08-23] MEDS ORDERED: COLA100C5 PO (09:21)
--- NOTE | 2021-08-23 13:07 | DS.PDOC ---
Discharge Summary General Date of Admission Aug 22, 2021 at 06:22 Date of Discharge 08/23/21 Discharge Summary PROCEDURES PERFORMED DURING STAY:Left total knee arthroplasty. DISCHARGE DIAGNOSES: Left total knee arthroplasty COMPLICATIONS/CHIEF COMPLAINT: Left Knee Osteoarthritis. HOSPITAL COURSE: 71 year old female with advanced left knee osteoarthritis, HTN, HLD was admitted for election left total knee arthroplasty. Patient had surgery on 08/22/21 which was uneventful. She has worked with PT and has been ambulating to the bathroom. She is being discharged home in a stable condition. Total left knee arthroplasty (POD#1) She presented to [facility] for an elective procedure with orthopedic surgery She has received outpatient medical clearance from her primary care provider Pain control, anticoagulation and physical therapy at the direction of orthopedic team HTN BP well controlled c/w Losartan DLP c/w Atorvastatin Vitamin D deficiency Will continue with supplementation on discharge DVT prophylaxis Will c/w ASA 81 BID as per orthopedic surgery DISCHARGE MEDICATIONS: Please see below. ALLERGIES: Please see below. PHYSICAL EXAMINATION ON DISCHARGE: VITAL SIGNS: Please see below. General: Sitting in chair,Speaking in full sentences, AAOx3 HEENT: NC, AT, PERRLA CVS: RRR, +S1S2, No Murmurs / rubs / gallops Lungs: Fair air entry bilaterally, No appreciable wheezing / rales / rhonchi Abdomen: Soft, Non-distended, Non-tender Extremities: No lower extremity edema, No calf tenderness Neuro: No focal motor or sensory deficit Skin: No visible rashes LABORATORY DATA: Please see below. ACTIVITY: [As tolerated]. DIET: regular DISCHARGE PLAN: Home DISCHARGE INSTRUCTIONS: Orthopedic discharge instructions: 1. Pain: You may take oxycodone as prescribed for pain. Supplement with Naproxen and Tylenol as needed. Ice pack to operative knee as tolerated. 2. Wound care: Remove dressing on postop day 7. Call [phone] with any questions or concerns. Hygiene: The patient may shower. No tub baths. Check dressing seal prior to bathing. 3. Activity: WBAT left lower extremity. Front wheeled walker versus crutches for ambulation. Fall precautions. 4. Driving: No driving until cleared by your surgeon. Do not drive if taking narcotic pain medications as these may make you drowsy. 5. DVT Prophylaxis: Continue taking aspirin 81 mg p.o. twice daily as prescribed for the prevention of blood clots. Ankle pumps every 1 hour while awake. BRANDON hose at all times for 1 month after surgery. May remove for hygiene and wound care. 6. Placement: Plan is to discharge patient to home with home health including nursing and physical therapy. 7. Surgeon Follow-up: The patient is scheduled to be seen in Dr. Campos's office 2 weeks post op with xrays. 8. Primary care Follow-up: Please see your primary care provider in the next 2 to 5 weeks for general medical re-evaluation and medication review. 9. Labs: CBC without differential to be drawn on postop day 3 with results to PCP and please fax to [phone]. 10. Please contact [facility] if you have any questions or concerns at [phone]. DISCHARGE CONDITION: [Stable]. TIME SPENT ON DISCHARGE: 35 minutes. Vital Signs/I&Os Vital Signs Date Time Temp Pulse Resp B/P (MAP) Pulse Ox O2 Delivery O2 Flow Rate FiO2 08/23/21 07:54 120/67 08/23/21 06:00 97.7 82 18 94 Room Air 08/22/21 14:45 1.0 I&O- Last 24 Hours up to 6 AM 08/23/21 06:00 Intake Total 2490 ml Output Total 1700 ml Balance 790 ml Laboratory Data Labs 24H Laboratory Tests 2 08/23/21 06:21: Nucleated Red Blood Cells % (auto) 0.0, Anion Gap 7L, Glomerular Filtration Rate > 60.0, Calcium Level 8.7L, Magnesium Level 2.2 CBC/BMP Laboratory Tests 08/23/21 06:21 Discharge Medications Scheduled Ascorbic Acid (Vitamin C) 500 Mg Tablet, 500 MG PO DAILY Aspirin (Aspirin EC) 81 Mg Tablet.dr, 81 MG PO BID Atorvastatin Calcium (Atorvastatin Calcium) 20 Mg Tablet, 20 MG PO DAILY, (Reported) Docusate Sodium (Colace) 100 Mg Capsule, 100 MG PO BID Ferrous Sulfate (Ferrous Sulfate) 325 Mg Tablet, 325 MG PO DAILY Losartan Potassium (Losartan Potassium) 25 Mg Tablet, 25 MG PO DAILY, (Reported) Mv-Mn/Iron/Folic Acid/Herb 190 (Vitamin D3 Complete Caplet) 1 Each Tablet, 1 TAB PO DAILY, (Reported) Scheduled PRN Naproxen (Naproxen) 250 Mg Tablet, 250 MG PO Q12HP PRN for PAIN LEVEL 3-5 Oxycodone HCl (Oxycodone HCl) 5 Mg Tablet, 1-2 TAB PO Q6HP PRN for PAIN LEVEL 6- 10 Allergies Coded Allergies: No Known Allergies (Verified , 08/27/08) Leeanne Avelar MD Aug 23, 2021 09:13
== END 2021-08-23 13:40 | disposition home health service (06) ==
LOC: M SDC 06:21 → M MS5PR 06:22
PROVIDERS: ADMIT Internal Medicine; ATTEND Orthopaedic Surgery Adult Reconstructive Orthopaedic Surgery
DX: M17.12 Unilateral primary osteoarthritis, left knee (principal); I10 Essential (primary) hypertension; E78.5 Hyperlipidemia, unspecified; E55.9 Vitamin D deficiency, unspecified; Z79.899 Other long term (current) drug therapy
CPT/HCPCS: 27447; 36415; 73560; 80048; 83735; 85027; 88304; 88311; 96365; 96366; 97116; 97161; 97165; 97530; 97535; C1713; C1776; G0378; J0690; J1100; J2250; J2370; J3010

== ENCOUNTER → 2021-08-25 | Outpatient (REF) | payer MEDICARE, BC, OTHER ==
[~2021-08-25] MED LIST changes: -ACETAMINOPHEN 500 MG TAB PO ONE; +ASCO50TA PO; +ASPI-551 PO; +COLA100C5 PO; +FERR1TAB8 PO; -LIDOCAINE 1% MDV 20ML VIAL SQ PRN; -LR 1,000 ML IV ONE; +NAPR-849 PO; -NAPROXEN 250 MG TAB PO ONE; -NS 1,000 ML IV ONE; +OXYC-517 PO; -PREGABALIN 25 MG CAP (LYRICA) PO ONE; -TRANEXAMIC ACID INJection 1,000 MG in NS 50 ML IV ONE; -ceFAZolin SOD 2 GM in IV 1 EA IV ONE; -dexameTHASONE 4 MG/ML 1ML VIAL (J1100 PER 1MG) IV ONE
[2021-08-25 17:24] LABS: HEMATOCRIT 32.5 % (36.0-47.0); HEMOGLOBIN 10.8 g/dl (12.0-15.5); MEAN CORPUSCULAR HEMOGLOBIN 31.3 pg (27.0-33.0); MEAN CORPUSCULAR HGB CONC 33.2 g/dl (32.0-36.5); MEAN CORPUSCULAR VOLUME 94.2 fl (80.0-96.0); PLATELET COUNT, AUTOMATED 233 10^3/uL (150-450); RED BLOOD COUNT 3.45 10^6/uL (4.00-5.40)
== END ==
LOC: M LAB REF 14:51 → M SHH 14:51
PROVIDERS: ATTEND Orthopaedic Surgery Adult Reconstructive Orthopaedic Surgery
DX: M17.12 Unilateral primary osteoarthritis, left knee (principal)

== ENCOUNTER → 2021-09-02 | Outpatient (CLI) | payer MEDICARE, BC, OTHER ==
--- NOTE | 2021-09-02 09:53 | REP ---
INDICATION: LT TKA. COMPARISON: 08/22/2021 TECHNIQUE: AP, lateral, sunrise views of the left knee FINDINGS: Satisfactory stable appearance to the joint replacement. Decreased overlying postsurgical changes. No acute fracture or dislocation. No obvious effusion. IMPRESSION: Satisfactory stable left knee replacement with decreased surrounding postsurgical changes. <Electronically signed by Lavon Oakley > 09/02/21 [id number]
== END ==
LOC: M SOG 09:29
PROVIDERS: ATTEND Orthopaedic Surgery Adult Reconstructive Orthopaedic Surgery
DX: Z96.652 Presence of left artificial knee joint (principal)

== ENCOUNTER 2021-10-13 07:56 | Outpatient (RCR) | payer MEDICARE, BC, OTHER | END 2021-10-14 | LOC: M PT 07:56 | PROVIDERS: ATTEND Orthopaedic Surgery Adult Reconstructive Orthopaedic Surgery | DX: Z96.652 Presence of left artificial knee joint (principal) ==

== ENCOUNTER → 2022-02-27 | Outpatient (REF) | payer MEDICARE, OTHER ==
[~2022-02-27] MED LIST changes: +LOSA25TA13 PO; -LOSA25TA14 PO
[2022-02-27 14:35] LABS: ALBUMIN 3.6 GM/DL (3.2-5.2); ALT/SGPT 23 U/L (12-78); BILIRUBIN,TOTAL 0.8 MG/DL (0.2-1.0); BLOOD UREA NITROGEN 19 MG/DL (7-18); CALCIUM LEVEL 9.4 MG/DL (8.8-10.2); CARBON DIOXIDE LEVEL 26 MEQ/L (21-32); CHLORIDE LEVEL 109 MEQ/L (98-107); CHOLESTEROL LEVEL 170 MG/DL (<200); CHOLESTEROL RISK RATIO 2.361 (<5); CREATININE FOR GFR 0.87 MG/DL (0.55-1.30); FREE T4 0.94 NG/DL (0.76-1.46); GLOMERULAR FILTRATION RATE > 60.0 (>39); GLUCOSE, FASTING 89 MG/DL (70-100); HDL CHOLESTEROL 72 MG/DL (>40); LDL CHOLESTEROL 85 MG/DL (<100); NON-HDL-C 98 MG/DL; POTASSIUM SERUM 4.3 MEQ/L (3.5-5.1); SODIUM LEVEL 143 MEQ/L (136-145); TOTAL PROTEIN 6.9 GM/DL (6.4-8.2); TRIGLYCERIDES LEVEL 64 MG/DL (<150)
== END ==
LOC: M SFHCADAM 07:54
PROVIDERS: ATTEND Family Medicine
DX: E78.5 Hyperlipidemia, unspecified (principal); I10 Essential (primary) hypertension

== ENCOUNTER → 2022-08-24 | Outpatient (CLI) | payer MEDICARE, OTHER | LOC: M SOG 07:53 | PROVIDERS: ATTEND Orthopaedic Surgery Adult Reconstructive Orthopaedic Surgery | DX: Z96.652 Presence of left artificial knee joint (principal) ==

== ENCOUNTER → 2022-08-31 | Outpatient (CLI) | payer MEDICARE, BC, OTHER | LOC: M WHC 09:31 | PROVIDERS: ATTEND Family Medicine | DX: Z12.31 Encounter for screening mammogram for malignant neoplasm of breast (principal); Z13.820 Encounter for screening for osteoporosis; M85.851 Other specified disorders of bone density and structure, right thigh; M85.852 Other specified disorders of bone density and structure, left thigh ==

== ENCOUNTER → 2023-01-26 | Outpatient (REF) | payer MEDICARE, OTHER ==
[2023-01-26 13:39] LABS: HEMATOCRIT 41.1 % (36.0-47.0); HEMOGLOBIN 13.3 g/dl (12.0-15.5); MEAN CORPUSCULAR HEMOGLOBIN 30.7 pg (27.0-33.0); MEAN CORPUSCULAR HGB CONC 32.4 g/dl (32.0-36.5); MEAN CORPUSCULAR VOLUME 94.9 fl (80.0-96.0); PLATELET COUNT, AUTOMATED 226 10^3/uL (150-450); RED BLOOD COUNT 4.33 10^6/uL (4.00-5.40); WHITE BLOOD COUNT 5.6 10^3/uL (4.0-10.0)
[2023-01-26 14:01] LABS: ALBUMIN 3.5 G/DL (3.2-5.2); ALKALINE PHOSPHATASE 116 U/L (46-116); ALT/SGPT 22 U/L (7.0-40); AST/SGOT 12 U/L (<34); BILIRUBIN,TOTAL 0.5 MG/DL (0.3-1.2); BLOOD UREA NITROGEN 19 MG/DL (9-23); CARBON DIOXIDE LEVEL 28 MMOL/L (20-31); CHLORIDE LEVEL 107 MMOL/L (98-107); CHOLESTEROL LEVEL 137 MG/DL (<200); CHOLESTEROL RISK RATIO 2.74 (<5); CREATININE FOR GFR 0.79 MG/DL (0.55-1.30); GLOMERULAR FILTRATION RATE > 60.0 (>39); GLUCOSE, FASTING 88 MG/DL (74-106); LDL CHOLESTEROL 72.8 MG/DL (<100); POTASSIUM SERUM 4.2 MMOL/L (3.5-5.1); SODIUM LEVEL 143 MMOL/L (136-145); THYROID STIMULATING HORMONE 4.626 uIU/ML (0.55-4.78); TOTAL PROTEIN 6.7 G/DL (5.7-8.2); TRIGLYCERIDES LEVEL 71 MG/DL (<150)
[2023-01-26 14:02] LABS: TOTAL 25(OH) VITAMIN D 31.6 NG/ML (20.0-100.0)
== END ==
LOC: M SFHCADAM 07:32
PROVIDERS: ATTEND Family Medicine
DX: M54.81 Occipital neuralgia (principal); E78.5 Hyperlipidemia, unspecified; I10 Essential (primary) hypertension; M85.80 Other specified disorders of bone density and structure, unspecified site

== ENCOUNTER → 2023-07-27 | Outpatient (REF) | payer MEDICARE, OTHER | LOC: M SFHCPLAZ 12:33 | PROVIDERS: ATTEND Student in an Organized Health Care Education/Training Program | DX: K61.0 Anal abscess (principal) ==

== ENCOUNTER → 2023-09-04 | Outpatient (CLI) | payer MEDICARE, BC, OTHER | LOC: M WHC 08:07 | PROVIDERS: ATTEND Physician Assistant | DX: Z12.31 Encounter for screening mammogram for malignant neoplasm of breast (principal) ==

== ENCOUNTER → 2024-02-04 | Outpatient (REF) | payer MEDICARE, BC ==
[2024-02-04 13:45] LABS: ALBUMIN 3.5 G/DL (3.2-5.2); ALKALINE PHOSPHATASE 109 U/L (46-116); ALT/SGPT 21 U/L (7.0-40); AST/SGOT 9 U/L (<34); BILIRUBIN,TOTAL 0.6 MG/DL (0.3-1.2); BLOOD UREA NITROGEN 25 MG/DL (9-23); CALCIUM LEVEL 9.1 MG/DL (8.3-10.6); CARBON DIOXIDE LEVEL 29 MMOL/L (20-31); CHLORIDE LEVEL 106 MMOL/L (98-107); CHOLESTEROL LEVEL 150 MG/DL (<200); CHOLESTEROL RISK RATIO 2.21 (<5); CREATININE FOR GFR 0.84 MG/DL (0.55-1.30); FREE T4 0.98 NG/DL (0.89-1.76); GLOMERULAR FILTRATION RATE > 60.0 (>39); GLUCOSE, FASTING 97 MG/DL (74-106); HDL CHOLESTEROL 67.6 MG/DL (>40); LDL CHOLESTEROL 70.8 MG/DL (<100); NON-HDL-C 82.4 MG/DL; POTASSIUM SERUM 4.5 MMOL/L (3.5-5.1); SODIUM LEVEL 141 MMOL/L (136-145); THYROID STIMULATING HORMONE 4.077 uIU/ML (0.55-4.78); TOTAL 25(OH) VITAMIN D 25.9 NG/ML (20.0-100.0); TRIGLYCERIDES LEVEL 58 MG/DL (<150)
[2024-02-04 13:51] LABS: BASO # 0.1 10^3/uL (0.0-0.2); BASO % 1.5 % (0.0-1.0); EOS # 0.2 10^3/uL (0.0-0.5); EOS % 3.1 % (0.0-3.0); HEMATOCRIT 43.9 % (36.0-47.0); HEMOGLOBIN 14.1 g/dl (12.0-15.5); LYMPH # 1.8 10^3/uL (1.5-5.0); MEAN CORPUSCULAR HEMOGLOBIN 30.9 pg (27.0-33.0); MEAN CORPUSCULAR HGB CONC 32.1 g/dl (32.0-36.5); MEAN CORPUSCULAR VOLUME 96.3 fl (80.0-96.0); MONO # 0.7 10^3/uL (0.0-0.8); MONO % 10.1 % (2.0-8.0); NEUTROPHILS % 59.2 % (36.0-66.0); PLATELET COUNT, AUTOMATED 261 10^3/uL (150-450); RED BLOOD COUNT 4.56 10^6/uL (4.00-5.40); WHITE BLOOD COUNT 6.8 10^3/uL (4.0-10.0)
== END ==
LOC: M SFHCADAM 07:34
PROVIDERS: ATTEND Physician Assistant
DX: I10 Essential (primary) hypertension (principal); E78.5 Hyperlipidemia, unspecified; E55.9 Vitamin D deficiency, unspecified

== ENCOUNTER → 2024-09-09 | Outpatient (CLI) | payer MEDICARE, BC | LOC: M WHC 08:29 | PROVIDERS: ATTEND Family Medicine | DX: Z12.31 Encounter for screening mammogram for malignant neoplasm of breast (principal); R92.313 Mammographic fatty tissue density, bilateral breasts ==

== ENCOUNTER → 2025-01-19 | Outpatient (CLI) | payer MEDICARE, BC ==
[2025-01-19 16:44] LABS: APPEARANCE, URINE HAZY (CLEAR); BACTERIA, URINE AUTO 1+ (NEGATIVE); BILIRUBIN, URINE AUTO NEGATIVE (NEGATIVE); BLOOD, URINE BLOOD 1+ (NEGATIVE); COLOR, URINE YELLOW (YELLOW); GLUCOSE, URINE (UA) AUTO NEGATIVE (NEGATIVE); KETONE, URINE AUTO TRACE mg/dL (NEGATIVE); LEUKOCYTE ESTERASE, URINE AUTO 3+ (NEGATIVE); MUCUS, URINE SMALL (NEGATIVE); NITRITE, URINE AUTO NEGATIVE (NEGATIVE); PROTEIN, URINE AUTO NEGATIVE (NEGATIVE); RBC, URINE AUTO 2 /HPF (0-3); SPECIFIC GRAVITY URINE AUTO 1.014 (1.002-1.035); SQUAMOUS EPITHELIAL CELL UR AU 1 /HPF (0-6); UROBILINOGEN, URINE AUTO 0.2 mg/dL (0.0-2.0); WBC, URINE AUTO 53 /HPF (0-3)
[2025-01-19 16:46] LABS: BLOOD UREA NITROGEN 12 MG/DL (9-23); CALCIUM LEVEL 8.7 MG/DL (8.3-10.6); CARBON DIOXIDE LEVEL 26 MMOL/L (20-31); CHLORIDE LEVEL 104 MMOL/L (98-107); CREATININE FOR GFR 0.81 MG/DL (0.55-1.30); GLOMERULAR FILTRATION RATE > 60.0 (>39); GLUCOSE, FASTING 113 MG/DL (74-106); SODIUM LEVEL 139 MMOL/L (136-145)
== END ==
LOC: M RAD 15:45
PROVIDERS: ATTEND Physician Assistant Medical
DX: R10.32 Left lower quadrant pain (principal); R30.0 Dysuria; N28.89 Other specified disorders of kidney and ureter

== ENCOUNTER → 2025-02-10 | Outpatient (CLI) | payer MEDICARE, BC | LOC: M RAD 10:51 | PROVIDERS: ATTEND Physician Assistant Medical | DX: N28.1 Cyst of kidney, acquired (principal) ==

== ENCOUNTER 2025-03-01 12:09 | Emergency (ER) | payer MEDICARE, BC ==
[~2025-03-01] VITALS: Ht 162.6 cm; Wt 79.7 kg
[2025-03-01 12:45] LABS: KETONE, URINE AUTO RFX NEGATIVE (NEGATIVE); MUCUS, URINE RFX SMALL (NEGATIVE); NITRITE, URINE AUTO RFX NEGATIVE (NEGATIVE); RBC, URINE AUTO RFX 2 /HPF (0-3); SQUAM EPITHELIAL CELL UR AURFX 0 /HPF (0-6)
[2025-03-01 12:46] LABS: LEUKOCYTE ESTERASE UR AUTO RFX 3+ (NEGATIVE); WBC, URINE AUTO RFX 23 /HPF (0-3)
[2025-03-01] MEDS ORDERED: CIPR250T26 PO (14:30)
[2025-03-01] MEDS: MAGNESIUM CITRATE 300ML BTL PO ONE (14:39)
[2025-03-01 14:42] VITALS: BP 129/81; TEMP 97.9; O2SAT 99
== END 2025-03-01 14:46 | disposition home or self-care (01) ==
LOC: M ED 12:09
DX: N30.00 Acute cystitis without hematuria (principal); K59.00 Constipation, unspecified; I10 Essential (primary) hypertension; E78.5 Hyperlipidemia, unspecified; Z79.82 Long term (current) use of aspirin; Z79.02 Long term (current) use of antithrombotics/antiplatelets; Z79.2 Long term (current) use of antibiotics; Z79.899 Other long term (current) drug therapy

== ENCOUNTER → 2025-04-28 | Outpatient (REF) | payer MEDICARE, BC ==
[~2025-04-28] MED LIST changes: +ACE65ERTAB PO; +CIPR-249 PO; +CIPR250T26 PO; +CIPR500T39 PO; +LOSA50TA28 PO; +META1POW PO; +META58.612 PO; +METR-265 PO; +PROBCAP2 PO
== END ==
LOC: M SFHCADAM 07:59
PROVIDERS: ATTEND Family Medicine
DX: N39.0 Urinary tract infection, site not specified (principal)

== ENCOUNTER 2025-05-05 06:17 | Inpatient (IN) | payer MEDICARE, BC ==
[2025-05-05] VITALS (13 sets, daily range): BP systolic 103–122; BP diastolic 58–80; TEMP 96.8–97.7; O2SAT 93–99
[~2025-05-05] VITALS: Ht 162.6 cm; Wt 78.2 kg
[~2025-05-05 06:17] MED LIST changes: -ACE65ERTAB PO; +ACET-1593 PO
[2025-05-05] MEDS ORDERED: LR 1,000 ML IV SCH (06:35)
[2025-05-05] MEDS ORDERED: LIDOCAINE 2% 100 MG/5 ML SDV (FOR ANES.) As Ordered ONE (06:59)
[2025-05-05] MEDS ORDERED: dexAMETHasone 4 MG/ML 1 ML VIAL As Ordered ONE (07:00)
[2025-05-05] MEDS ORDERED: ROCURONIUM BROMIDE 50MG/5ML VIAL As Ordered ONE (07:01)
[2025-05-05] MEDS ORDERED: ONDANSETRON 4MG 2ML VIAL As Ordered ONE (07:02)
[2025-05-05] MEDS ORDERED: SUGAMMADEX SODIUM 500 MG/5 ML VIAL As Ordered ONE (07:03)
[2025-05-05 07:10] LABS: INR 0.98
[2025-05-05] MEDS: metroNIDAZOLE 500 MG in IV 1 EA IV ONE (07:28)
[2025-05-05] MEDS ORDERED: NITR100C2 PO (07:35)
[2025-05-05] MEDS: ceFAZolin SOD 2 GM IV ONCE IV ONE (07:49)
[2025-05-05] MEDS ORDERED: HOME MED LIST COMPLETE! XX SCH (07:50)
[2025-05-05] MEDS ORDERED: PHENYLEPHRINE 10MG/ML 1ML VIAL As Ordered ONE (08:01)
[2025-05-05] MEDS ORDERED: ACETAMINOPHEN 1000MG/100ML IV BAG As Ordered ONE (08:05)
[2025-05-05] MEDS: GLUCAGON INJ 1 MG VIAL As Ordered ONE (09:55)
[2025-05-05] MEDS ORDERED: LABETALOL 100 MG/20 ML VIAL As Ordered ONE (10:21)
[2025-05-05] MEDS ORDERED: HYDROmorphone HCL 2 MG/ML 1 ML VIAL As Ordered ONE (10:40)
[2025-05-05] MEDS: LR 1,000 ML IV SCH (11:00)
[2025-05-05] MEDS: HYDROMORPHONE HCL 0.5 MG/0.5 ML SYRINGE IV PRN (11:23)
[2025-05-05] MEDS: ONDANSETRON 4MG 2ML VIAL IV PRN (11:30)
[2025-05-05] MEDS: KETOROLAC 30 MG/ML 1 ML VIAL IV SCH (11:45)
[2025-05-05] MEDS ORDERED: MORPHINE 4 MG/ML 1 ML VIAL IV PRN (13:00)
[2025-05-05] MEDS ORDERED: ONDANSETRON 4MG 2ML VIAL IV PRN (13:00)
[2025-05-05] MEDS ORDERED: IPRATROPIUM 0.5 MG/ALBUTEROL 2.5 MG INH SOL UD 3 ML NEB PRN (13:00)
[2025-05-05] MEDS ORDERED: ACETAMINOPHEN 325 MG TAB PO PRN (13:00)
[2025-05-05] MEDS ORDERED: MORPHINE 2 MG/ML 1 ML VIAL IV PRN ×2 (13:00)
[2025-05-05] MEDS: NS (Normal Saline) 0.9% 1,000 ML IV SCH (13:30)
[2025-05-05] MEDS: IPRATROPIUM 0.5 MG/ALBUTEROL 2.5 MG INH SOL UD 3 ML NEB SCH (14:35)
[2025-05-05] MEDS: CIPROFLOXACIN 400 MG in IV 1 EA IV SCH (17:00)
[2025-05-05] MEDS: metroNIDAZOLE 500 MG in IV 1 EA IV SCH (18:19)
[2025-05-06 03:52] VITALS: BP 118/64; TEMP 97.7; O2SAT 94
[2025-05-06 06:09] LABS: PLATELET COUNT, AUTOMATED 210 10^3/uL (150-450)
[2025-05-06 06:33] LABS: CALCIUM LEVEL 7.3 MG/DL (8.3-10.6); CARBON DIOXIDE LEVEL 24.0 MMOL/L (20-31); CHLORIDE LEVEL 107.0 MMOL/L (98-107); CREATININE FOR GFR 0.83 MG/DL (0.55-1.30); GLOMERULAR FILTRATION RATE 73.9 (>39); POTASSIUM SERUM 3.8 MMOL/L (3.5-5.1); SODIUM LEVEL 143.0 MMOL/L (136-145)
[2025-05-06] MEDS: ATORVASTATIN 20 MG TAB PO SCH (08:29)
[2025-05-06] MEDS: LOSARTAN 50 MG TABLET PO SCH (08:29)
[2025-05-06 08:43] VITALS: BP 117/60; TEMP 97.2; O2SAT 94
[2025-05-06 12:00] VITALS: BP 118/65; TEMP 97.5; O2SAT 97
[2025-05-06 16:00] VITALS: BP 129/73; TEMP 97; O2SAT 93
[2025-05-06 20:15] VITALS: BP 127/71; TEMP 98.2; O2SAT 94
[2025-05-06] MEDS: PANTOPRAZOLE 40MG VIAL IV SCH (21:55)
[2025-05-07 00:30] VITALS: BP 138/73; TEMP 97.7; O2SAT 93
[2025-05-07] MEDS: RAMELTEON 8 MG TAB PO PRN (00:33)
[2025-05-07 04:30] VITALS: BP 134/72; TEMP 97.7; O2SAT 92
[2025-05-07 06:28] LABS: PLATELET COUNT, AUTOMATED 191 10^3/uL (150-450)
[2025-05-07 06:52] LABS: CALCIUM LEVEL 7.6 MG/DL (8.3-10.6); CARBON DIOXIDE LEVEL 24 MMOL/L (20-31); CHLORIDE LEVEL 111 MMOL/L (98-107); CREATININE FOR GFR 0.66 MG/DL (0.55-1.30); GLOMERULAR FILTRATION RATE > 90.0 (>39); POTASSIUM SERUM 3.4 MMOL/L (3.5-5.1); SODIUM LEVEL 145 MMOL/L (136-145)
[2025-05-07 08:00] VITALS: BP 134/72; TEMP 97.7; O2SAT 91
[2025-05-07 12:00] VITALS: BP 139/81; TEMP 97.9; O2SAT 98
[2025-05-07 20:00] VITALS: BP 129/75; TEMP 97.4; O2SAT 97
[2025-05-08] VITALS: BP 144/85; TEMP 97.5; O2SAT 95
[2025-05-08 04:00] VITALS: BP 145/84; TEMP 97.7; O2SAT 94
[2025-05-08 05:58] LABS: PLATELET COUNT, AUTOMATED 215 10^3/uL (150-450)
[2025-05-08 06:34] LABS: CALCIUM LEVEL 8.0 MG/DL (8.3-10.6); CARBON DIOXIDE LEVEL 25 MMOL/L (20-31); CHLORIDE LEVEL 110 MMOL/L (98-107); CREATININE FOR GFR 0.69 MG/DL (0.55-1.30); GLOMERULAR FILTRATION RATE > 90.0 (>39); POTASSIUM SERUM 3.3 MMOL/L (3.5-5.1); SODIUM LEVEL 148 MMOL/L (136-145)
[2025-05-08] MEDS: POTASSIUM CHLORIDE 10MEQ SR TABLET PO ONE (08:33)
[2025-05-08 08:34] VITALS: BP 145/84
[2025-05-08] MEDS ORDERED: DIATRIZOATE MEGLUMINE As Ordered ONE (09:52)
== END 2025-05-08 14:18 | disposition home or self-care (01) | DRG 330 ==
LOC: M OR 06:17 → M MSPAV 12:35
PROVIDERS: ADMIT Surgery; ATTEND Surgery
PROC: 0DTN4ZZ Resection of Sigmoid Colon, Percutaneous Endoscopic Approach (ICD-10-PCS; principal; 2025-05-05 07:30)
DX: K57.92 Diverticulitis of intestine, part unspecified, without perforation or abscess without bleeding (principal); N32.1 Vesicointestinal fistula; I10 Essential (primary) hypertension; E78.00 Pure hypercholesterolemia, unspecified; Z96.652 Presence of left artificial knee joint; E78.5 Hyperlipidemia, unspecified; Z79.899 Other long term (current) drug therapy

== ENCOUNTER 2025-05-21 12:20 | Emergency (ER) | payer MEDICARE, BC ==
[~2025-05-21] VITALS: Ht 162.6 cm; Wt 71.2 kg
[~2025-05-21 12:20] MED LIST changes: +NITR100C2 PO
[2025-05-21] MEDS ORDERED: ACET-683 PO (12:28)
[2025-05-21 12:57] LABS: KETONE, URINE AUTO RFX NEGATIVE (NEGATIVE); NITRITE, URINE AUTO RFX NEGATIVE (NEGATIVE); RBC, URINE AUTO RFX 3 /HPF (0-3); SQUAM EPITHELIAL CELL UR AURFX 4 /HPF (0-6)
[2025-05-21 12:59] LABS: LEUKOCYTE ESTERASE UR AUTO RFX 3+ (NEGATIVE); WBC, URINE AUTO RFX 71 /HPF (0-3)
[2025-05-21 13:08] LABS: BASO # 0.1 10^3/uL (0.0-0.2); BASO % 1.5 % (0.0-1.0); EOS # 0.3 10^3/uL (0.0-0.5); EOS % 4.2 % (0.0-3.0); LYMPH # 1.7 10^3/uL (1.5-5.0); LYMPH % 23.4 % (24.0-44.0); MONO # 0.7 10^3/uL (0.0-0.8); MONO % 9.8 % (2.0-8.0); NEUTROPHILS # 4.3 10^3/uL (1.5-8.5); NEUTROPHILS % 60.7 % (36.0-66.0); PLATELET COUNT, AUTOMATED 355 10^3/uL (150-450)
[2025-05-21] MEDS ORDERED: HOME MED LIST COMPLETE! XX SCH (13:10)
[2025-05-21 13:31] LABS: ALT/SGPT 24 U/L (7.0-40); AST/SGOT 24 U/L (<34); CALCIUM LEVEL 9.2 MG/DL (8.3-10.6); CARBON DIOXIDE LEVEL 26 MMOL/L (20-31); CHLORIDE LEVEL 104 MMOL/L (98-107); CREATININE FOR GFR 0.70 MG/DL (0.55-1.30); GLOMERULAR FILTRATION RATE > 90.0 (>39); POTASSIUM SERUM 4.1 MMOL/L (3.5-5.1); SODIUM LEVEL 142 MMOL/L (136-145)
[2025-05-21] MEDS ORDERED: ISOVUE-370 76% 100 ML VIAL As Ordered ONE (13:48)
[2025-05-21 16:20] VITALS: BP 163/87; O2SAT 98
[2025-05-21 16:25] VITALS: TEMP 98.1
[2025-05-24] MEDS ORDERED: COLA100C5 PO (14:35)
[2025-05-24] MEDS ORDERED: SENN8.6T58 PO (14:35)
== END 2025-05-21 16:52 | disposition home or self-care (01) ==
LOC: M ED 12:20
DX: R10.9 Unspecified abdominal pain (principal); R33.9 Retention of urine, unspecified; I10 Essential (primary) hypertension; Z79.1 Long term (current) use of non-steroidal anti-inflammatories (NSAID); Z79.02 Long term (current) use of antithrombotics/antiplatelets; Z79.899 Other long term (current) drug therapy
CPT/HCPCS: 36415; 51702; 74177; 80048; 80076; 81001; 83605; 83690; 85025; 87086; 99285; Q9967

== ENCOUNTER 2025-08-13 07:20 | Day surgery (SDC) | payer MEDICARE, BC ==
[~2025-08-13] VITALS: Ht 162.6 cm; Wt 70.3 kg
[~2025-08-13 07:20] MED LIST changes: +ACET-683 PO; +LIDOCAINE 2% 100 MG/5 ML SDV (FOR ANES.) As Ordered ONE; +SENN8.6T58 PO
[2025-08-13 09:21] VITALS: TEMP 97
[2025-08-13 09:36] VITALS: BP 128/79; O2SAT 100
== END 2025-08-13 09:48 | disposition home or self-care (01) ==
LOC: M OPP 07:20
PROVIDERS: ATTEND Surgery
DX: D12.6 Benign neoplasm of colon, unspecified (principal); K57.30 Diverticulosis of large intestine without perforation or abscess without bleeding; Z86.0100 Personal history of colon polyps, unspecified; Z79.899 Other long term (current) drug therapy

== ENCOUNTER → 2025-08-25 | Outpatient (CLI) | payer MEDICARE, BC ==
[~2025-08-25] MED LIST changes: -LIDOCAINE 2% 100 MG/5 ML SDV (FOR ANES.) As Ordered ONE
== END ==
LOC: M SOG 07:39
PROVIDERS: ATTEND Orthopaedic Surgery
DX: Z96.652 Presence of left artificial knee joint (principal); Z47.1 Aftercare following joint replacement surgery

== ENCOUNTER → 2025-09-07 | Outpatient (REF) | payer MEDICARE, BC ==
[~2025-09-07] MED LIST changes: +ACET-1387 PO; -ACET-1593 PO
[2025-09-07 15:28] LABS: PLATELET COUNT, AUTOMATED 238 10^3/uL (150-450)
[2025-09-07 15:41] LABS: ALT/SGPT 19.0 U/L (7.0-40); AST/SGOT 16.0 U/L (<34); CALCIUM LEVEL 9.0 MG/DL (8.3-10.6); CARBON DIOXIDE LEVEL 26.0 MMOL/L (20-31); CHLORIDE LEVEL 106.0 MMOL/L (98-107); CREATININE FOR GFR 0.77 MG/DL (0.55-1.30); GLOMERULAR FILTRATION RATE 80.9 (>39); POTASSIUM SERUM 4.3 MMOL/L (3.5-5.1); SODIUM LEVEL 142.0 MMOL/L (136-145)
[2025-09-07 15:43] LABS: TOTAL 25(OH) VITAMIN D 26.5 NG/ML (20.0-100.0)
== END ==
LOC: M SFHCADAM 07:33
PROVIDERS: ATTEND Family Medicine
DX: K57.92 Diverticulitis of intestine, part unspecified, without perforation or abscess without bleeding (principal); I10 Essential (primary) hypertension; M85.80 Other specified disorders of bone density and structure, unspecified site

== ENCOUNTER → 2025-09-14 | Outpatient (CLI) | payer MEDICARE, BC | LOC: M WHC 08:35 | PROVIDERS: ATTEND Family Medicine | DX: Z12.31 Encounter for screening mammogram for malignant neoplasm of breast (principal); M85.89 Other specified disorders of bone density and structure, multiple sites; R92.313 Mammographic fatty tissue density, bilateral breasts ==